=== PATIENT | female | born 1985 | race Caucasian/White ===

== ENCOUNTER 2023-03-13 14:06 | Outpatient (OUT) | payer BC, SELFPAY ==
--- NOTE | 2023-03-13 14:08 | US_ITS ---
[address] [address] Patient Name: JENI LOPEZ MRN: [id number] date: 1985 Sex: F Assigned Patient Location: Current Patient Location: US Accession/Order Number: [id number] Exam Date: 03/13/2023 14:09 Report Date: 03/13/2023 16:22 At the request of: LEONELA CONROY Procedure: US OB >= 14 weeks Fetus PROCEDURE: US OB >= 14 weeks Fetus HISTORY: DATING COMPARISON: None. TECHNIQUE: Transabdominal sonographic examination was performed for obstetrical and evaluation. FINDINGS: Number: 1 Heart Rate: 137.0 bpm H.B. /min Amniotic Fluid Volume: Subjectively normal BIOMETRY: BPD: 4.3 cm 19 weeks 1 days HC: 16.3 cm 19 weeks 0 days AC:13.6 cm 19 weeks 0 days FL: 2.9 cm 18 weeks 5 days EFW: 264.1 grams FL/AC: 21.0 FL/BPD: 65.7 HC/AC: 1.2 GESTATIONAL AGE: Age by EDC: 17 weeks 5 days DORETHA by EDC: 08/16/2023 Ultrasound Age: 19 weeks 0 days Ultrasound DORETHA: 08/07/2023 US/US OB >= 14 weeks Fetus IMPRESSION: Single live intrauterine with growth detailed above. Electronically authenticated by: LEENA ARGUELLO Date: 03/13/2023 16:22
== END 2023-03-13 14:07 | disposition home or self-care (01) ==
LOC: US 14:07
PROVIDERS: Visit Provider Obstetrics & Gynecology
DX: Z34.92 Encounter for supervision of normal pregnancy, unspecified, second trimester (principal); Z3A.14 14 weeks gestation of pregnancy; N92.6 Irregular menstruation, unspecified
CPT/HCPCS: 76815

== ENCOUNTER 2023-03-25 09:32 | Outpatient (OUT) | payer BC, SELFPAY ==
--- NOTE | 2023-03-25 09:39 | US_ITS ---
[address] [address] Patient Name: JENI LOPEZ MRN: [id number] date: 1985 Sex: F Assigned Patient Location: US Current Patient Location: US Accession/Order Number: [id number] Exam Date: 03/25/2023 10:00 Report Date: 03/25/2023 15:21 At the request of: LEONELA CONROY Procedure: US OB cervical length EXAMINATION: US OB anatomy, US OB cervical length HISTORY: Second Trimester Z34.92 COMPARISON: No relevant comparison available. TECHNIQUE: Transabdominal sonographic examination was performed for obstetrical and evaluation. FINDINGS: Number: 1 Heart Rate: 145.2 bpm H.B. /min Amniotic Fluid Volume: Subjectively normal. Placental Location: RIGHT (anterior-posterior) with lower margin 7.0 cm from os. Cervix Length: 4.4 cm, closed. ANATOMY: Normal Structures -cerebellum, choroid plexus, cisterna magna, lateral cerebral ventricles, orbits, midline falx, hard palate, four-chamber heart, RVOT, LVOT, stomach, kidneys, bladder, umbilical cord insertion into abdomen, three-vessel cord, cervical spine, thoracic spine, lumbar spine, sacral spine, right upper extremity, left upper extremity, right lower extremity, left lower extremity. SUBOPTIMALLY SEEN: None ABNORMALITIES: None BIOMETRY: BPD: 5.2 cm 21 weeks 6 days HC: 17.5 cm 20 weeks 0 days AC: 15.4 cm 20 weeks 4 days FL: 3.4 cm 20 weeks 5 days EFW:364.5 grams; 31% FL/AC: 22.1 FL/BPD: 65.0 HC/AC: 1.1 GESTATIONAL AGE: Age by EDC: 20 weeks 6 days DORETHA by EDC: 08/06/2023 Age by current US: 20 weeks 6 days DORETHA by current US: 08/06/2023 US/US OB cervical length IMPRESSION: 1. Single live intrauterine with growth detailed above. Electronically authenticated by: LEENA ARGUELLO Date: 03/25/2023 15:21
--- NOTE | 2023-03-25 09:39 | US_ITS ---
[address] [address] Patient Name: JENI LOPEZ MRN: [id number] date: 1985 Sex: F Assigned Patient Location: US Current Patient Location: US Accession/Order Number: [id number] Exam Date: 03/25/2023 10:00 Report Date: 03/25/2023 15:21 At the request of: LEONELA CONROY Procedure: US OB anatomy EXAMINATION: US OB anatomy, US OB cervical length HISTORY: Second Trimester Z34.92 COMPARISON: No relevant comparison available. TECHNIQUE: Transabdominal sonographic examination was performed for obstetrical and evaluation. FINDINGS: Number: 1 Heart Rate: 145.2 bpm H.B. /min Amniotic Fluid Volume: Subjectively normal. Placental Location: RIGHT (anterior-posterior) with lower margin 7.0 cm from os. Cervix Length: 4.4 cm, closed. ANATOMY: Normal Structures -cerebellum, choroid plexus, cisterna magna, lateral cerebral ventricles, orbits, midline falx, hard palate, four-chamber heart, RVOT, LVOT, stomach, kidneys, bladder, umbilical cord insertion into abdomen, three-vessel cord, cervical spine, thoracic spine, lumbar spine, sacral spine, right upper extremity, left upper extremity, right lower extremity, left lower extremity. SUBOPTIMALLY SEEN: None ABNORMALITIES: None BIOMETRY: BPD: 5.2 cm 21 weeks 6 days HC: 17.5 cm 20 weeks 0 days AC: 15.4 cm 20 weeks 4 days FL: 3.4 cm 20 weeks 5 days EFW:364.5 grams; 31% FL/AC: 22.1 FL/BPD: 65.0 HC/AC: 1.1 GESTATIONAL AGE: Age by EDC: 20 weeks 6 days DORETHA by EDC: 08/06/2023 Age by current US: 20 weeks 6 days DORETHA by current US: 08/06/2023 US/US OB anatomy IMPRESSION: 1. Single live intrauterine with growth detailed above. Electronically authenticated by: LEENA ARGUELLO Date: 03/25/2023 15:21
== END 2023-03-25 09:33 | disposition home or self-care (01) ==
LOC: US 09:34
PROVIDERS: PCP Family Medicine; Visit Provider Obstetrics & Gynecology
DX: Z34.92 Encounter for supervision of normal pregnancy, unspecified, second trimester (principal)
CPT/HCPCS: 76805; 76817

== ENCOUNTER 2023-04-01 11:01 | Outpatient (OUT) | payer BC, SELFPAY ==
[2023-04-01 12:06] LABS: Estimated Average Glucose 85 mg/dL; Glycohemoglobin A1C 4.6 % (4.5-6.2)
[2023-04-01 12:07] LABS: Basophils Percent Auto 0.1 % (0.2-2.0); Eosinophils Absolute Auto 0.1 10^3/uL (0.0-0.7); Eosinophils Percent Auto 1.2 % (0.9-7.0); Immature Granulocytes Abs Auto 0.02 10^3/uL (0.00-0.03); Immature Granulocytes Pct Auto 0.3 % (0.0-0.5); Lymphocytes Absolute Auto 0.9 10^3/uL (1.2-3.8); Lymphocytes Percent Auto 13.6 % (20.5-60.0); Mean Corpuscular HGB Conc 33.3 g/dL (29.9-35.2); Monocytes Absolute Auto 0.3 10^3/uL (0.3-0.8); Monocytes Percent Auto 4.3 % (1.7-12.0); Neutrophils Absolute Auto 5.5 10^3/uL (1.4-6.5); Neutrophils Percent Auto 80.5 % (43.0-75.0); Platelet Count 141 10^3/uL (150-450); Red Blood Count 4.14 10^6/uL (4.20-5.40); Red Cell Distribution Width 13.5 % (11.0-15.0); White Blood Count 6.8 10^3/uL (4.0-11.0)
[2023-04-01 12:47] LABS: Thyroid Stimulating Hormone 0.872 uIU/mL (0.358-3.740)
[2023-04-02 06:09] LABS: HBsAg Screen Negative (Negative); HCV Ab Non Reactive (Non Reactive); Rubella Antibodies, IgG 1.63 index (Immune >0.99)
[2023-04-02 11:10] LABS: HIV Ab/p24 Ag Screen Non Reactive (Non Reactive)
[2023-04-02 12:09] LABS: Rapid Plasma Reagin, Quant Non Reactive (NonRea<1:1)
[2023-04-03 16:10] LABS: AFP Value 74.9 ng/mL (.); Gest. Age on Collection Date 21.7 weeks (.); Gestat. Age Based On Ultrasound (.); Insulin Dep Diabetes No (.); Maternal Age At EDD 35.7 yr (.); OSBR Risk 1 IN 8933 (.); Results Report (.)
== END 2023-04-01 11:02 | disposition home or self-care (01) ==
LOC: LAB 11:03
PROVIDERS: PCP Family Medicine; Visit Provider Obstetrics & Gynecology
DX: Z34.92 Encounter for supervision of normal pregnancy, unspecified, second trimester (principal)
CPT/HCPCS: 36415; 82105; 83036; 84443; 85025; 86592; 86706; 86762; 86803; 86850; 86900; 86901; 87086; 87389

== ENCOUNTER 2023-05-06 20:30 | Outpatient (REF) | payer BC, SELFPAY ==
[2023-05-10 11:08] LABS: Age Gdln ACOG Testing Note (.); HPV Aptima Negative (Negative); IGP, Aptima HPV, rfx 16/18,45 Note (.)
== END 2023-05-06 20:31 | disposition home or self-care (01) ==
LOC: LAB 20:30
PROVIDERS: PCP Family Medicine; Visit Provider Obstetrics & Gynecology
DX: Z12.4 Encounter for screening for malignant neoplasm of cervix (principal)
CPT/HCPCS: 87624; G0145

== ENCOUNTER 2023-05-07 07:34 | Outpatient (OUT) | payer BC, SELFPAY ==
[2023-05-07 09:03] LABS: Basophils Percent Auto 0.4 % (0.2-2.0); Eosinophils Absolute Auto 0.1 10^3/uL (0.0-0.7); Eosinophils Percent Auto 1.4 % (0.9-7.0); Hematocrit 32.7 % (36.0-48.0); Hemoglobin 10.5 g/dL (12.0-16.0); Immature Granulocytes Abs Auto 0.04 10^3/uL (0.00-0.03); Immature Granulocytes Pct Auto 0.7 % (0.0-0.5); Lymphocytes Absolute Auto 0.9 10^3/uL (1.2-3.8); Lymphocytes Percent Auto 16.5 % (20.5-60.0); Mean Corpuscular HGB Conc 32.1 g/dL (29.9-35.2); Mean Corpuscular Hemoglobin 29.1 pg (26.7-34.0); Mean Corpuscular Volume 90.6 fL (81.0-99.0); Mean Platelet Volume 10.9 fL (9.5-13.5); Monocytes Absolute Auto 0.3 10^3/uL (0.3-0.8); Monocytes Percent Auto 5.1 % (1.7-12.0); Neutrophils Absolute Auto 4.3 10^3/uL (1.4-6.5); Neutrophils Percent Auto 75.9 % (43.0-75.0); Platelet Count 117 10^3/uL (150-450); Red Blood Count 3.61 10^6/uL (4.20-5.40); Red Cell Distribution Width 13.2 % (11.0-15.0); White Blood Count 5.7 10^3/uL (4.0-11.0)
[2023-05-07 09:47] LABS: Glucose 1 Hour 79 mg/dL
== END 2023-05-07 07:35 | disposition home or self-care (01) ==
LOC: LAB 07:35
PROVIDERS: PCP Family Medicine; Visit Provider Obstetrics & Gynecology
DX: Z13.1 Encounter for screening for diabetes mellitus (principal)
CPT/HCPCS: 36415; 82950; 85025

== ENCOUNTER 2023-06-16 11:19 | Outpatient (OUT) | payer BC, SELFPAY ==
--- NOTE | 2023-06-16 11:21 | US_ITS ---
[address] [address] Patient Name: JENI LOPEZ MRN: [id number] date: 1985 Sex: F Assigned Patient Location: US Current Patient Location: US Accession/Order Number: [id number] Exam Date: 06/16/2023 11:21 Report Date: 06/16/2023 16:39 At the request of: LEONELA CONROY Procedure: US OB growth EXAMINATION: US OB growth HISTORY: SIZE INCONSISTENT WITH DATES COMPARISON: No relevant comparison available. FINDINGS: Heart Rate: 133.0 bpm Amniotic Fluid Volume: 10.9 cm Number: 1.0 Position: Cephalic presentation, longitudinal lie Maximum Vertical Pocket: 5.4 cm cm 1.1 cm cm 2.8 cm cm 1.7 cm cm Other: Small right scrotal hydrocele BIOMETRY: BPD: 8.4 cm cm; 33 weeks 5 days; 76% HC: 29.5 cmcm; 32 weeks 4 days, 40% AC: 28.0 cm cm; 32 weeks 0 days, 34% FL: 6.3 cm cm; 32 weeks 5 days; 43.3 % % EFW: 1979.9 grams, 4 lbs. 6 oz., 36% FL/AC: 22.6 FL/BPD: 75.7 HC/AC: 1.1 GESTATIONAL AGE: Age by EDC: 32 weeks 4 days DORETHA by EDC: 08/07/2023 Age by US: 32 weeks 5 days DORETHA by US: 08/06/2023 US/US OB growth IMPRESSION: Small right scrotal hydrocele Normal interval growth Electronically authenticated by: SANJU ROSADO Date: 06/16/2023 16:39
== END 2023-06-16 11:20 | disposition home or self-care (01) ==
LOC: US 11:19
PROVIDERS: PCP Family Medicine; Visit Provider Obstetrics & Gynecology
DX: O26.843 Uterine size-date discrepancy, third trimester (principal); Z3A.32 32 weeks gestation of pregnancy
CPT/HCPCS: 76816

== ENCOUNTER 2023-07-08 19:19 | Outpatient (REF) | payer BC, SELFPAY | END 2023-07-08 19:20 | disposition home or self-care (01) | LOC: LAB 19:19 | PROVIDERS: PCP Family Medicine; Visit Provider Obstetrics & Gynecology | DX: Z34.93 Encounter for supervision of normal pregnancy, unspecified, third trimester (principal) | CPT/HCPCS: 87081; 87150 ==

== ENCOUNTER 2023-07-25 04:24 | Inpatient (IN) | payer BC, SELFPAY ==
[2023-07-25] VITALS (47 sets, daily range): BP systolic 80–128; BP diastolic 48–75; PULSE 77–122; RESP 16–18; TEMP 36.6–37.1
[2023-07-25 05:50] LABS: Bilirubin Urine NEGATIVE (NEGATIVE); Blood Urine NEGATIVE (NEGATIVE); Clarity Urine CLOUDY (CLEAR); Color Urine YELLOW (YELLOW); Glucose Urine UA NEGATIVE (NEGATIVE); Ketones Urine NEGATIVE (NEGATIVE); Leukocyte Esterase Urine LARGE (NEGATIVE); Nitrite Urine NEGATIVE (NEGATIVE); Protein Urine NEGATIVE (NEG/TRACE); Urobilinogen Urine 0.2 EU/dL (0.2-1.0); pH Urine 7.5 (5.0-9.0)
[2023-07-25 05:54] LABS: Urine Microscopic Indicated YES
[2023-07-25 05:58] LABS: Amorphous Sediment Urine FEW; Bacteria Urine MODERATE #/HPF (NONE SEEN); Cast Seen? NONE SEEN #/LPF (NONE SEEN); Crystals Seen? Seen #/HPF (None Seen); Mucus Urine NONE SEEN (NONE SEEN); Squamous Epithelial Cell Urine MODERATE #/LPF (NONE/RARE); Urine Culture Indicated YES; WBC Urine 75-100 #/HPF (NONE SEEN)
[2023-07-25 11:27] LABS: Amphetamine Screen Urine NEGATIVE (NEGATIVE); Barbiturates Screen Urine NEGATIVE (NEGATIVE); Benzodiazepines Screen Urine NEGATIVE (NEGATIVE); Buprenorphine Screen Urine NEGATIVE (NEGATIVE); Cannabinoid Screen Urine NEGATIVE (NEGATIVE); Cocaine Screen Urine NEGATIVE (NEGATIVE); Methadone Screen Urine NEGATIVE (NEGATIVE); Methamphetamines Screen Urine NEGATIVE (NEGATIVE); Opiate Screen Urine NEGATIVE (NEGATIVE); Oxycodone Screen Urine NEGATIVE (NEGATIVE); Phencyclidine Screen Urine NEGATIVE (NEGATIVE); Tricyclic Antidepressant Urine NEGATIVE (NEGATIVE)
[2023-07-25] MEDS: AMPICILLIN SODIUM 2,000 MG in 0.9 % SODIUM CHLORIDE 100 ML 200 MG IV (11:43)
[2023-07-25] MEDS: 0.9 % SODIUM CHLORIDE 1,000 ML 1000 ML IV (11:44)
[2023-07-25] MEDS: OXYTOCIN 10 UNIT in 0.9 % SODIUM CHLORIDE 500 ML 6.012 UNIT IV (11:47)
[2023-07-25 11:50] LABS: Hematocrit 31.7 % (36.0-48.0); Mean Corpuscular HGB Conc 31.5 g/dL (29.9-35.2); Mean Corpuscular Hemoglobin 26.7 pg (26.7-34.0); Mean Corpuscular Volume 84.8 fL (81.0-99.0); Mean Platelet Volume 12.5 fL (9.5-13.5); Platelet Count 115 10^3/uL (150-450); Red Blood Count 3.74 10^6/uL (4.20-5.40); Red Cell Distribution Width 13.6 % (11.0-15.0); White Blood Count 8.9 10^3/uL (4.0-11.0)
[2023-07-25] MEDS: ROPIVACAINE HCL/PF 400 MG/200 ML PREMIX 6 MG EPIDURAL (13:10)
[2023-07-25] MEDS: 0.9 % SODIUM CHLORIDE 1,000 ML 125 ML IV ×2 (13:29→20:11)
[2023-07-25] MEDS: CALCIUM CARBONATE 500 MG (200MG ELEMENTAL) TAB CHEW PO (15:38)
[2023-07-25] MEDS: AMPICILLIN SODIUM 1,000 MG in 0.9 % SODIUM CHLORIDE 50 ML 100 MG IV (15:38)
--- NOTE | 2023-07-25 17:54 | PM.OBPRCVD ---
Procedure Intrapartal events: None Induction method: none Delivery augmentation: rupture of membranes and pitocin Delivery monitor: external FHT and external uterine Route of delivery: Laceration description: periurethral - 2nd degree Delivery repair: Vicryl Estimated blood loss (mL): 300 Anesthesia type: Epidural Disposition: floor Delivery date: 07/25/23 Gender: male presentation: vertex Placental delivery description: Spontaneous cord description: 3 Vessels
[2023-07-25] MEDS: OXYTOCIN/0.9 % SODIUM CHLORIDE 20 UNITS/1,000 ML PLAST..BAG 125 UNIT IV (18:10)
--- NOTE | 2023-07-25 19:37 | PC.NURSE ---
dr grayson notified of qbl of 1235 and pt vital signs and stability, instructs RN to continue second bag of pitocin after first bag and call for additional concerns
--- NOTE | 2023-07-25 19:39 | PC.NURSE ---
182 several fist size clots expressed with moderate stream of blood accompanying, uterus firms up with massage u/1
--- NOTE | 2023-07-25 19:42 | PC.NURSE ---
0 additional stream of blood with massage and one clot noted, fist size, pt states feels a little shaky but is also hungry, color remains pink, instructed to call with any additional gushes, takes dinner, iv pitocin increased to 999 ml/hr qbl 1235 mls fundus firm ue
[2023-07-25] MEDS: IBUPROFEN 600 MG TABLET PO (21:43)
[2023-07-26] VITALS (9 sets, daily range): BP systolic 92–107; BP diastolic 51–61; PULSE 91–101; RESP 16; TEMP 36.6–37.3
[2023-07-26 05:24] LABS: Basophils Percent Auto 0.2 % (0.2-2.0); Eosinophils Percent Auto 0.4 % (0.9-7.0); Hematocrit 24.2 % (36.0-48.0); Hemoglobin 7.5 g/dL (12.0-16.0); Immature Granulocytes Abs Auto 0.07 10^3/uL (0.00-0.03); Immature Granulocytes Pct Auto 0.7 % (0.0-0.5); Lymphocytes Absolute Auto 1.1 10^3/uL (1.2-3.8); Lymphocytes Percent Auto 10.2 % (20.5-60.0); Mean Corpuscular Hemoglobin 26.7 pg (26.7-34.0); Mean Corpuscular Volume 86.1 fL (81.0-99.0); Mean Platelet Volume 12.5 fL (9.5-13.5); Monocytes Absolute Auto 0.6 10^3/uL (0.3-0.8); Monocytes Percent Auto 5.4 % (1.7-12.0); Neutrophils Absolute Auto 8.9 10^3/uL (1.4-6.5); Neutrophils Percent Auto 83.1 % (43.0-75.0); Platelet Count 105 10^3/uL (150-450); Red Blood Count 2.81 10^6/uL (4.20-5.40); Red Cell Distribution Width 13.4 % (11.0-15.0); White Blood Count 10.7 10^3/uL (4.0-11.0)
--- NOTE | 2023-07-26 07:21 | PC.NURSE ---
Report given to Rob Singh RN
[2023-07-26] MEDS: IBUPROFEN 600 MG TABLET PO ×3 (08:28→23:48)
[2023-07-26] MEDS: DOCUSATE SODIUM 100 MG CAPSULE PO ×2 (08:29→21:45)
--- NOTE | 2023-07-26 09:01 | P.OBPN_ITS ---
OB - PN: Subj Subjective Patient comments: no complaints and pain well controlled [place] status: doing well Exam Constitutional Vital Signs, click to edit/add: Last Vital Signs Temp 97.9 F 07/26/23 04:45 Pulse 91 H 07/26/23 08:15 Resp 16 07/26/23 00:49 BP 93/52 07/26/23 08:15 Documenting provider has reviewed patient's vital signs: yes Common normals: no apparent distress Respiratory Common normals: normal respiratory effort and clear to auscultation bilaterally Cardio Common normals: regular rate and regular rhythm GI Common normals: Normal to inspection, nondistended, normoactive bowel sounds present Extremity Common normals: no clubbing, cyanosis or edema and no calf tenderness Results Labs Labs: Short CBC 07/25/23 07/26/23 Range/Units 11:30 05:12 WBC 8.9 10.7 (4.0-11.0) 10^3/uL Hgb 10.0 L 7.5 L (12.0-16.0) g/dL Hct 31.7 L 24.2 L (36.0-48.0) % Plt Count 115 L 105 L (150-450) 10^3/uL OB - PN: A/P Plan - Vaginal Delivery day: 1 Plan: routine care, discharge home and follow up 6 weeks Time Spent with Patient Time: Total time spent is greater than 50% in coordination of care (as documented) at patient's floor/unit and/or counseling patient: Total time spent with greater than 50% in coordination of care (as documented) at patient's floor/unit and/or counseling patient: less than 15 minutes
--- NOTE | 2023-07-26 10:05 | PC.NURSE ---
0815 Assessed as noted, denies abnormal bleeding or dizziness, saline lock removed per pt request
[2023-07-27 00:14] VITALS: RESP 16
[2023-07-27 00:17] VITALS: TEMP 36.6
[2023-07-27] MEDS: IBUPROFEN 600 MG TABLET PO (06:07)
--- NOTE | 2023-07-27 07:44 | PC.NURSE ---
0715-Report given to Samantha Byrne RN.
[2023-07-27 09:00] VITALS: RESP 16
[2023-07-27 09:01] VITALS: BP 109/66; PULSE 86; TEMP 36.4
--- NOTE | 2023-07-27 09:20 | PM.OBPN ---
OB - PN: Subj Subjective Patient comments: no complaints and pain well controlled [place] status: doing well Exam Constitutional Vital Signs, click to edit/add: Last Vital Signs Temp 97.9 F 07/27/23 00:17 Pulse 86 07/27/23 09:01 Resp 16 07/27/23 00:14 BP 109/66 07/27/23 09:01 Documenting provider has reviewed patient's vital signs: yes Common normals: no apparent distress Respiratory Common normals: normal respiratory effort and clear to auscultation bilaterally Cardio Common normals: regular rate and regular rhythm GI Common normals: Normal to inspection, nondistended, normoactive bowel sounds present Extremity Common normals: no calf tenderness OB - PN: A/P Plan - Vaginal Delivery day: 2 Plan: routine care, discharge home and follow up 6 weeks Time Spent with Patient Time: Total time spent is greater than 50% in coordination of care (as documented) at patient's floor/unit and/or counseling patient: Total time spent with greater than 50% in coordination of care (as documented) at patient's floor/unit and/or counseling patient: less than 15 minutes
[2023-07-30 01:11] LABS: Neisseria gonorrhoeae, NAA Negative (Negative)
== END 2023-07-27 17:18 | disposition home or self-care (01) | DRG 806 ==
PROVIDERS: Internal Medicine Allergy & Immunology; Admitting Provider Obstetrics & Gynecology; PCP Family Medicine; Visit Provider Obstetrics & Gynecology
DX: O99.12 Other diseases of the blood and blood-forming organs and certain disorders involving the immune mechanism complicating childbirth (principal); O98.82 Other maternal infectious and parasitic diseases complicating childbirth; Z37.0 Single live birth; O70.1 Second degree perineal laceration during delivery; O99.214 Obesity complicating childbirth; D69.6 Thrombocytopenia, unspecified; Z3A.38 38 weeks gestation of pregnancy; B95.1 Streptococcus, group B, as the cause of diseases classified elsewhere
CPT/HCPCS: 36415; 59025; 59050; 59410; 80307; 81001; 85025; 85027; 86850; 86900; 86901; 87086; 87150; 87186; 87491; 87591; 96374; 96375; 96376

== ENCOUNTER 2023-07-29 08:08 | Outpatient (OUT) | payer BC, SELFPAY ==
--- NOTE | 2023-07-29 12:44 | PC.NURSE ---
Sheri and Wilmar arrive for follow up visit. Sheri emotional, tearful. States just been a lot by myself with the 3 other kids and a . No help at this time as she and spouse are . Has 3 older children and , but children will now be with father for next 9 days. I just need to rest and take care of myself for a few days and all will be fine . Sheri's assessment WNL denies complaints of pain. States did pass large clot early this AM. No heavy bleeding before or after clot. Had just awakened from 4 hour stretch of sleep and had minimal blood on pad. Wilmar assessment WNL. Baby feeds every 2-3 hours well, had 1 four hour stretch this AM. Has 7-8 voids and 5-6 yellow/brown stools, turning yellow . Mom reports nipples are sore but that is normal for me, first 2 weeks are bad and then just gets better Baby latches at breast, deep latch noted with immediate swallows noted. Active nursing for 23 minutes. Reviewed care of breasts, shells give with explanation, lanolin and use of tea bags. Pt states will call if does not improve and would like further assistance from LC.
[2023-07-29 12:48] VITALS: BP 136/82; PULSE 120; RESP 18; TEMP 36.8; O2SAT 96
== END 2023-07-29 09:55 | disposition home or self-care (01) ==
LOC: FBCO 08:09
PROVIDERS: PCP Family Medicine; Visit Provider Obstetrics & Gynecology
DX: Z39.2 Encounter for routine postpartum follow-up (principal)

== ENCOUNTER 2023-09-11 12:36 | Outpatient (OUT) | payer BC, SELFPAY ==
--- OUTSIDE RECORDS SUMMARY | 2023-09-11 12:39 | XMS_ITS | CCD ---
Author Name Unknown Address [address] [place] [address] Organization [facility] Care Team Providers Care Digital Analytics Manager Name Role Phone Denise, Carmen L. Unavailable Unavailable Denise, Carmen L. Unavailable Unavailable Pascual, Zainab R Unavailable Unavailable Pascual, Zainab R Unavailable Unavailable NONE, XXXX Unavailable Unavailable Denise, Carmen L. Unavailable Unavailable Denise, Carmen L. Unavailable Unavailable NONE, XXXX Unavailable Unavailable Pascual, Zainab R Unavailable Unavailable Denise, Carmen L. Unavailable Unavailable Denise, Carmen L. Unavailable Unavailable Denise, Carmen L. Unavailable Unavailable Denise, Carmen L. Unavailable Unavailable NONE, XXXX Unavailable Unavailable Vimal, Shwetha Unavailable Unavailable Vimal, Shwetha Unavailable Unavailable BACAK, TOMASA J Unavailable Unavailable DENISE, CARMEN Unavailable Unavailable DENISE, CARMEN Unavailable Unavailable BACAK, TOMASA J Unavailable Unavailable DENISE, CARMEN Unavailable Unavailable DENISE, CARMEN Unavailable Unavailable Minnie Medrano Unavailable LEONELA CONROY Attending Unavailable LEONELA CONROY Attending Unavailable ELADIO VERONICA Attending Unavailable Medications Current Medications Medication Drug Class(es) Dates Sig (Normalized) Sig (Original) Phentermine (2 sources) Sympathomimetic Amine Anorectic Adipex-P Active sulfamethoxazole 800 mg / trimethoprim 160 mg oral tablet (2 sources) Dihydrofolate Reductase Inhibitor Antibacterial, Sulfonamide Antimicrobial Start: 01-04-2022 take 1 tablet by mouth every twelve hours Bactrim DS 800-160 MG 1 tablet Orally Twice a day for 10 day(s) December, Active Problems Problem Classification Problem Date Documented Date Episodic/Chronic Genitourinary symptoms and ill-defined conditions (2 sources) Dysuria; Translations: [Other symptoms and signs involving the genitourinary system] Onset: 01-04-2022 Resolved: 01-04-2022 Episodic Results Test Name Value Interpretation Reference Range Facility Urinalysis - DIPSTICKon -0 Appearance (U) cloudy [email or web address] Other Bilirubin Ql (U) small [employer] Other Color (U) yellow [employer] Other Glucose Ql (U) Negative [email or web address] Other Hemoglobin Ql (U) large [facility] [employer] Other Ketones Ql (U) moderate [email or web address] Other Leukocyte esterase Test strip Ql (U) moderate [employer] Other Nitrite Ql (U) Positive [email or web address] Other pH (U) 7.0 [pH] [employer] Other Protein Ql (U) + [email or web address] Other Specific gravity (U) [Rel density] 1.010 [employer] Other Urobilinogen (U) [Mass/Vol] normal [facility] Other Urinalysis - DIPSTICK [employer] Other Urine Cultureon 01-04-2022 Urine Culture 50,000 [employer] Other Urine Culture <16 Susceptible [email or web address] Other Urine Culture <8 Susceptible [email or web address] Other Urine Culture <4 Susceptible [email or web address] Other Urine Culture <2 Susceptible [email or web address] Other Urine Culture <1 Susceptible [email or web address] Other Urine Culture <0.5 Susceptible [email or web address] Other Urine Culture <32 Susceptible [email or web address] Other Urine Culture <2/38 Susceptible [email or web address] Other Bacteria identified Cx Nom (U) Reason for Exam Dysuria Urine Reason for Exam: Dysuria : Urine ORGANISM: Escherichia coli (O:ESCCOL) [place] Count 50,000 Aerobic MILTON Charge (NUC86) SUSCEPTIBILITY ORGANISM: O:ESCCOL ANTIBIOTIC INTERPRETATION [place] Amikacin S <16 Ampicillin S <8 Ampicillin/Sulbactam S <8/4 Aztreonam S <4 Cefazolin S <2 Cefepime S <2 Ceftazidime S <1 Ceftazidime/Avibactam S <8 Ceftriaxone S <1 Ciprofloxacin S <1 Ertapenem S <0.5 Gentamicin S <4 Levofloxacin S <2 Meropenem S <1 Nitrofurantoin S <32 Piperacillin/Tazobactam S <16 Tetracycline S <4 Tigecycline S <2 Tobramycin S <4 Trimethoprim/Sulfamethoxazo le S <2/38 S = SUSCEPTIBLE I = INTERMEDIATE R = RESISTANT BLANK = DATA NOT AVAILABLE, OR DRUG NOT ADVISABLE OR TESTED R* = RESISTANCE DUE TO EXTENDED SPECTRUM BETA-LACTAMASES ESBL = EXTENDED SPECTRUM BETA-LACTAMASE TFG = THYMIDINE-DEPENDENT STRAIN GREYSON = BETA-LACTAMASE POSITIVE IB = INDUCIBLE BETA-LACTAMASE. APPEARS IN PLACE OF 'S' WITH SPECIES KNOWN TO POSSESS INDUCIBLE BETA-LACTAMASES. POTENTIALLY THEY MAY BECOME RESISTANT TO ALL B-LACTAM DRUGS. PERFORMED BY: [place] [address] PATHOLOGIST SEXUAL HEALTH PHYSICIAN PJ ASHBY M.D. Normal [facility] Comment on above: Performed By: #### C UU #### [address] Coding Queryon 08-21-2017 Coding Query Normal [facility] Coding Queryon 08-20-2017 Coding Query -From: Rukhsana Alexander To: Vimal ROMERO, Shwetha Florentino; Cc: Elida Swanson; Sent: 08/15/2017 15:55:00 EST !Subject: Coding Query Hi Dr. Celis, Documentation in the medical record indicates this patient is diagnosed as having:Laceration: perineal second degree.Please document a procedure note if repair was performed. Thanks for your help.In responding to this request, please exercise your independent professional judgment. The fact that a question is asked does not imply that any particular answer is desired or expected. Thank you!Severiano Ext [phone] Fr om: Shwetha Celis MD To: Rukhsana Alexander; Cc: Elida Swanson; Sent: 08/20/2017 12:52:16 ESTSubject: RE: Coding Query Addendum added to delivery note. F rom: Rukhsana Alexander To: Elida Swanson; Sent: 08/20/2017 13:15:13 ESTSubject: FW: Coding Query Normal [facility] Coding Summary.on 08-20-2017 Coding Summary. CODING DATE: 017 FINAL [facility] DSC STATUS: Home (Routine DC) PAYOR: Commercial Insurance Grouper: 775 MS-DRG Vaginal delivery w/o complicating diagnoses Low Trim 0 High Trim 999 560 APR-DRG Vaginal delivery Severity of Illness Minor Risk of Mortality Minor ADMIT DX: O80 Encounter for full-term uncomplicated delivery REASON FOR VISIT DX: FINAL DX: PRINCIPAL: O69.81X0 Y Labor and delivery complicated by cord around neck, without compression, not applicable or unspecified SECONDARY: Z37.0 1 Single live Z3A.40 1 40 weeks gestation of O70.1 N Second degree perineal laceration during delivery O90.81 N Anemia of the puerperium D64.9 N Anemia, unspecified PROCEDURES DOCTOR NAME DATE Delivery of Products of Shwetha Celis MD 08/13/2017 Conception, External Approach [id number] Repair Perineum Muscle, Open Shwetha Celis MD 08/13/2017 Approach 37733SD Drainage of Amniotic Fluid, Shwetha Cleis MD 08/13/2017 Therapeutic from Products of Conception, Via Natural or Artificial Opening [id number] Introduction of AnalgesicsJayleen JR, DO, Nicholas 08/13/2017 Hypnotics, Sedatives into Spinal Canal, Percutaneous Approach NOTE: The code number assigned matches the documented diagnosis and / or procedure in the patient's chart. However, the narrative phrase printed from the coding software may appear abbreviated, or result in slightly different terminology. Revised Coded By: Rukhsana Alexander Revised Date Saved: 08/20/2017 01:20 pm Normal [facility] Delivery Summaryon 7 Delivery Summary Patient: VERONICA LOPEZ Age: 31 years Sex: Female : 1985 Associated Diagnoses: None Author: Shwetha Celis MD Basic Information Gestational Age: * Note: EGA calculated as of 08/13/2017EDD: 08/11/2017 EGA*: 40 weeks 2 days Type: Authoritative Method Date: 05/12/2017Method: Unknown (05/12/2017)Confirmation: ConfirmedDescription: --Comments: --Entered by: José Antonio Corporate Trust OfficerAlma on 05/12/2017 Other DORETHA Calculations for this : No additional DORETHA calculations have been recorded for this . Procedure Vaginal delivery procedure Performed by: Shwetha Celis MD. Indication for delivery: labor progression spontaneous, TIUP. Anesthesia method: epidural. Position: birthing bed. Rupture of membranes: moderate amount of fluid, appearance of fluid clear, amniotomy. Delivery of infant: time of 08/13/17 08:47:00, uneventful, umbilical cord (clamped and cut, delayed cord clamping x30 seconds), KATHRYN presentation, nuchal cord x1. Right shoulder anterior.. Status of infant Viable Gender: male. Apgars: 9 at one minute, 9 at five minutes. Weight: pending. Umbilical cord: three vessels. Not suctioned prior to delivery of shoulders. Placenta: delivery spontaneous, intact. Uterus: hemostasis. Procedure tolerated: well. Complications Maternal: no complications. Newell/ Baby A: no complications. Post Delivery Laceration: perineal second degree. Estimated blood loss: 200 ml. Impression and Plan Vaginal Delivery: condition: Stable. Maternal condition: Stable.2nd degree perineal laceration repaired with 3-0 Vicryl in the usual fashion.Shwetha Celis MD [facility] Comment on above: Result Comment: Elec tronically Signed By: Vimal ROMERO, Shwetha Florentino\.br\Date and Time Signed: 08/20/17 12:51 EST Progress Note-Physicianon Progress Note-Physician Patient: SHERI LOPEZ Age: 31 years Sex: Female : 1985 Associated Diagnoses: None Author: Anuj Clemens JR, DO Postoperative Information Post Operative Note: L/D EPIDURAL POST DELIVERY NOTE.. Anesthetic utilized: Regional: EPCA for L/D. Health Status Allergies: Allergic Reactions (Selected)No Known Allergies Current medications: (Selected) Documented MedicationsDocumentedZantac : Refills(s) 0predniSONE: Refills(s) 0 Problem list: All ProblemsGroup B streptococcus / SNOMED CT 918444014 / ConfirmedResolved: Urinary tract infection / SNOMED CT 325850501Qhpjdydr: / SNOMED CT 444439494Chtowyov: / SNOMED CT 601398071Gozmrzao: / SNOMED CT 403526859Hryjbydb: / SNOMED CT 958173630 Physical Examination VSS, Epidural catheter removed intact, Lumbar area site nontender, no erythema Intake and Output Pt. denies significant n/v, and is tolerating p.o. No qualifying data available Pain assessment: Pain Assessment 08/14/2017 16:00 EST Numeric Pain Scale 5 = Moderate pain Numeric Pain Score 5 08/14/2017 13:00 EST Numeric Pain Scale 0 = No pain Numeric Pain Score 0 08/14/2017 12:00 EST Numeric Pain Scale 5 = Moderate pain Numeric Pain Score 5 08/14/2017 08:00 EST Numeric Pain Scale 0 = No pain Numeric Pain Score 0 08/14/2017 07:40 EST Pain Symptoms Self Report Yes, able to self report Primary Pain Location OB Uterine Primary Pain Laterality Bilateral Primary Pain Quality Cramping Patient Preferred Pain Tool Numeric rating Numeric Pain Scale 5 = Moderate pain Numeric Pain Score 5 Primary Pain Interventions Medications, Repositioning, Rest . Respiratory: Adequate air exchange with adventist of preoperative function.. Cardiovascular: Cardiovascular function is stable and has returned to preoperative levels.. Neurologic: Pt. has returned to preoperative baseline.. Assessment Anesthetic outcome No anesthetic complications noted. Plan Transfer/ Discharge: Patient can be discharged from anesthesia care. Condition good. Normal [facility] Comment on above: Result Comment: Elec tronically Signed By: Anuj Clemens JR, DO\.br\Date and Time Signed: 08/15/17 17:39 EST Progress Note-Physician Patient: SHERI LOPEZ Age: 31 years Sex: Female : 1985 Associated Diagnoses: None Author: Anuj Clemens JR, DO Postoperative Information Post Operative Note: L/D EPIDURAL POST DELIVERY NOTE.. Anesthetic utilized: Regional: EPCA for L/D. Health Status Allergies: Allergic Reactions (Selected)No Known Allergies Current medications: (Selected) Inpatient MedicationsOrderedEpidural Bag Ropivacaine Fentanyl 200 mL: 200 mL, Epidural, 10 mL/hr, for 48 hour(s), Stop date 08/15/17 7:06:00 EST, Routine, Start date 08/13/17 7:07:00 EST, 20 hour(s), Total volume (mL): 200Lactated Ringers IV Sagrario 1000 mL 1,000 mL: 1,000 mL, IV, 125 mL/hr, Routine, Start date 08/13/17 7:07:00 EST, 8 hour(s), Total volume (mL): 1,000Lactated Ringers IV Sagrario 1000 mL 1,000 mL: 1,000 mL, IV, Bolus, Other (see comment), Routine, Start date 08/13/17 7:07:00 EST, Total volume (mL): 1,000Mastisol: 1 sharmin, Soln-Top, Topical, Once PRN Other (see comment), Routine, Start date 08/13/17 7:07:00 ESTZofran 4 mg/2 mL Injection: 4 mg = 2 mL, Injection, IV Push, q4hr PRN Itching, Routine, Start date 08/13/17 7:07:00 ESTdiphenhydrAMINE 50 mg/mL Inj: 25 mg = 0.5 mL, Injection, IV Push, q4hr PRN Itching, Routine, Start date 08/13/17 7:07:00 ESTePHEDrine 50 mg/mL Inj: 10 mg = 0.2 mL, Injection, IV Push, Once PRN Other (see comment), Routine, Start date 08/13/17 7:07:00 ESTfentaNYL 50 mcg/mL Inj 2 mL: 100 microgram = 2 mL, Injection, Epidural, Once PRN Other (see comment), Routine, Start date 08/13/17 7:07:00 ESTnalbuphine 10 mg/mL Inj 1 mL: 10 mg = 1 mL, Injection, IV Push, q2hr PRN Pain - Moderate, Routine, Start date 08/13/17 7:05:00 ESTnalbuphine 10 mg/mL Inj 1 mL: 20 mg = 2 mL, Injection, IntraMuscular, Once PRN Pain - Severe, Routine, Start date 08/13/17 7:05:00 ESTnaloxone 0.4 mg/mL Inj: 0.2 mg = 0.5 mL, Injection, IV Push, Once PRN Other (see comment), Routine, Start date 08/13/17 7:07:00 ESTropivacaine 0.2% injectable solution 10 mL: 18 mg, 9 mL, Injection, Epidural, Once PRN Other (see comment), Routine, Start date 08/13/17 7:07:00 ESTDocumented MedicationsDocumentedZantac : Refills(s) 0predniSONE: Refills(s) 0 Problem list: All ProblemsPregnancy / SNOMED CT 539577876 / ConfirmedGroup B streptococcus / SNOMED CT 693790167 / ConfirmedResolved: Urinary tract infection / SNOMED CT 573300805Zppsghts: / SNOMED CT 299746882Doizayom: / SNOMED CT 220970603Liufljfk: / SNOMED CT 855595486 Physical Examination VSS, Epidural catheter removed intact, Lumbar area site nontender, no erythema Intake and Output Pt. denies significant n/v, and is tolerating p.o. Vitals Signs (last 24 hrs) Last Charted Minimum MaximumTemp 36.4 (AUG 13:) 36.4 (AUG 13:) 36.4 (AUG 13:)Heart Rate H 123 (AUG 13:) H 123 (AUG 13) H 123 (AUG 13)Resp Rate 18 (AUG 13:) 18 (AUG 13:) 18 (AUG 13:)SBP 120 (AUG 13:) 120 (AUG 13:) 120 (AUG 13:)DBP 66 (AUG 13:) 66 (AUG 13:) 66 (AUG 13:)MAP 84 (AUG 13:) 84 (AUG 13:) 84 (AUG 13:) Respiratory: Adequate air exchange with adventist of preoperative function.. Cardiovascular: Cardiovascular function is stable and has returned to preoperative levels.. Neurologic: Pt. has returned to preoperative baseline.. Assessment Anesthetic outcome No anesthetic complications noted. Plan Transfer/ Discharge: Patient can be discharged from anesthesia care. Condition good. Normal [facility] CBC w/Indiceson 08-14-2017 Erythrocyte distribution width Auto Ratio (RBC) 14.3 % High 10.9-14.2 [facility] Comment on above: Performed By: #### 2 [id number] ####[facility] [address] [place] [address] Erythrocytes (RBC) 3.4 E12/L Low 4.3-5.9 [facility] Comment on above: Performed By: #### 2 [id number] ####[facility] [address] [place] [id number] Hematocrit (HCT) 27.3 % Low 34.0-46.0 [facility] Comment on above: Performed By: #### 2 [id number] ####[facility] [address] [place] [address] Hemoglobin mass conc (Bld) 8.9 g/dL Low 12.0-16.0 [facility] Comment on above: Performed By: #### 2 [id number] ####[facility] [address] [place] [address] MCH 26.2 pg Low 27.0-34.0 [facility] Comment on above: Performed By: #### 2 [id number] ####[facility] [address] [place] [address] MCHC mass conc (RBC) 32.7 g/dL Normal 31.4-39.3 [facility] Comment on above: Performed By: #### 2 [id number] ####[facility] [address] [place] [address] MCV 80.2 fL Normal 80.0-100.0 [facility] Comment on above: Performed By: #### 2 [id number] ####[facility] [address] [place] [address] Platelet mean volume (PMV) 9.8 fL Normal 6.4-10.8 [facility] Comment on above: Performed By: #### 2 [id number] ####[facility] [address] [place] [address] Platelets 106.0 E9/L Low 150.0-500.0 [facility] Comment on above: Performed By: #### 2 [id number] ####[facility] [address] [place] [address] WBC (Leukocytes) 10.1 E9/L Normal 4.0-11.0 [facility] Comment on above: Performed By: #### 2 [id number] ####[facility] [address] [place] [address] Consultation Noteon 08-14-20 Consultation Note Visited Mom. She fee ls that is going well. She denies any concerns. She does state that her milk is coming in. I have offered my support should she need anything. khloe,SOFTWARE DEVELOPER MANAGER,[employer] Normal [facility] Comment on above: Result Comment: Elec tronically Signed By: Salvatore CounselorJojo\.br\Date and Time Signed: 08/14/17 09:18 EST Discharge Instructions Given Worseningon 08-14-2017 Discharge Instructions Given Worsening The following Patient Education Materials have been given to the patient: EducationMaterial Normal [facility] Discharge Summaryon 08-14-20 Discharge Summary Patient: VERONICA LOPEZ Age: 31 years Sex: Female : 1985 Associated Diagnoses: None Author: Vimal ROMERO, Shwetha Florentino Chief Complaint 31 yo PPD#1 s/p , doing well. Ambulating, voiding, nohemy reg diet, pain well controlled with po pain meds. Notes lot of cramping. Lochia normal. going well. Desires OCPs for PP contraception.Admit date: 08/13/17Discharge date: 08/14/17Condition: stableDischarge diagnoses: 1. TIUP 2. Spontaneous labor 3. PP anemiaProcedures: 1. 2. EpiduralConsultations: noneDisposition: homeDischarge diet: regularDischarge meds: ibuprofen prnHospital course: Patient admitted in active labor. Progressed to complete and went on to deliver without complication. Please see delivery note for further details about delivery. On PPD#1 pt was ambulating, voiding, nohemy reg diet, pain well controlled, and breast/bottle feeding. Ready for discharge. Pt would like OCPs for PP contraception.Discharge restrictions: No lifting >20# for 4 wks, nothing in vagina x4 wks, no strenuous activity x4 wks. Call if Temp >100.4, uncontrolled pain or N/V, bleeding soaking more than 1 pad/hr. Start micronor 3 wks after delivery Review of Systems Otherwise negative other than per above. Physical Examination Vital Signs 08/14/2017 07:40 EST Temperature Oral 36.7 DegC Heart Rate Monitored 78 bpm Respiratory Rate 16 br/min Systolic Blood Pressure 102 mmHg Diastolic Blood Pressure 55 mmHg LOW Mean Arterial Pressure, Cuff 71 mmHg Hourly Rounding Yes SpO2 98 % General: Alert and oriented, No acute distress. Eye: Pupils are equal, round and reactive to light, Extraocular movements are intact. HENT: Normocephalic, Normal hearing. Respiratory: Lungs are clear to auscultation, Respirations are non-labored, Breath sounds are equal, Symmetrical chest wall expansion. Cardiovascular: Normal rate, Regular rhythm, Normal peripheral perfusion. Gastrointestinal: Soft, Non-distended, Normal bowel sounds, Appropriately tender to palpation. Musculoskeletal Normal range of motion. Normal strength. Integumentary: Warm, Dry, [place]. Neurologic: Alert, Oriented. Psychiatric: Cooperative, Appropriate mood & affect, Normal judgment. Review / Management Results review: Lab results 08/14/2017 06:00 EST Hgb 8.9 gm/dL LOW 08/13/2017 07:23 EST Hgb 11.0 gm/dL LOW . Impression and Plan 31 yo PPD#1 s/p , doing well. PP anemia.1. Discharge home, f/u for 6 wk PP visit2. Cont PNV for PP anemia3. Start OCPs 3 wks after delivery.Shwetha Celis MD [facility] Comment on above: Result Comment: Elec tronically Signed By: Shwetha Celis MD\.br\Date and Time Signed: 08/14/17 17:47 EST Inpatient Clinical Summaryon 08-14-2017 Inpatient Clinical Summary [place] [address] Clinical Summary Person Information Name: SHERI LOPEZ/[facility] Age: 31 Years : 1985 12:00 AM Sex: Female PCP: NONE, XXXX Marital Status: Race:White Ethnicity:Non- or Language:Divehi Visit Id: Visit Reason:INDUCTION/CONTRACTIO NS Speciality: Acuity: 1 PP Enc Type: Inpatient Med Service: Obstetrics Arrival:08/13/2017 6:51 AM Discharge: 08/14/2017 6:15 PM Dispo Type: Home (Routine DC) Address:[address] [place] [id number] Provider Notes: Patient: SHERI LOPEZ Age: 31 years Sex: Female : 1985 Associated Diagnoses: None Author: Shwetha Celis MD Chief Complaint 31 yo PPD#1 s/p , doing well. Ambulating, voiding, nohemy reg diet, pain well controlled with po pain meds. Notes lot of cramping. Lochia normal. going well. Desires OCPs for PP contraception.Admit date: 08/13/17Discharge date: 08/14/17Condition: stableDischarge diagnoses: 1. TIUP 2. Spontaneous labor 3. PP anemiaProcedures: 1. 2. EpiduralConsultations: noneDisposition: homeDischarge diet: regularDischarge meds: ibuprofen prnHospital course: Patient admitted in active labor. Progressed to complete and went on to deliver without complication. Please see delivery note for further details about delivery. On PPD#1 pt was ambulating, voiding, nohemy reg diet, pain well controlled, and breast/bottle feeding. Ready for discharge. Pt would like OCPs for PP contraception.Discharge restrictions: No lifting >20# for 4 wks, nothing in vagina x4 wks, no strenuous activity x4 wks. Call if Temp >100.4, uncontrolled pain or N/V, bleeding soaking more than 1 pad/hr. Start micronor 3 wks after delivery Review of Systems Otherwise negative other than per above. Physical Examination Vital Signs 08/14/2017 07:40 EST Temperature Oral 36.7 DegC Heart Rate Monitored 78 bpm Respiratory Rate 16 br/min Systolic Blood Pressure 102 mmHg Diastolic Blood Pressure 55 mmHg LOW Mean Arterial Pressure, Cuff 71 mmHg Hourly Rounding Yes SpO2 98 % General: Alert and oriented, No acute distress. Eye: Pupils are equal, round and reactive to light, Extraocular movements are intact. HENT: Normocephalic, Normal hearing. Respiratory: Lungs are clear to auscultation, Respirations are non-labored, Breath sounds are equal, Symmetrical chest wall expansion. Cardiovascular: Normal rate, Regular rhythm, Normal peripheral perfusion. Gastrointestinal: Soft, Non-distended, Normal bowel sounds, Appropriately tender to palpation. Musculoskeletal Normal range of motion. Normal strength. Integumentary: Warm, Dry, [place]. Neurologic: Alert, Oriented. Psychiatric: Cooperative, Appropriate mood & affect, Normal judgment. Review / Management Results review: Lab results 08/14/2017 06:00 EST Hgb 8.9 gm/dL LOW 08/13/2017 07:23 EST Hgb 11.0 gm/dL LOW . Impression and Plan 31 yo PPD#1 s/p , doing well. PP anemia.1. Discharge home, f/u for 6 wk PP visit2. Cont PNV for PP anemia3. Start OCPs 3 wks after delivery.Shwetha Celis MD Diagnosis:Normal vaginal delivery Problems Active Group B streptococcus Smoking Status:Never Smoker Functional Status:Sensory Deficits: History of Falls: Mobility Assistance Prior to Admission: ADLs: IndependentCurrent Level of Assistance for Self-Care/Mobility: Cognitive Status: Allergies No Known Allergies Laboratory or Other Results This Visit (last charted value for your 08/13/2017 visit) Hematology 08/14/2017 6:00 AM Hct: 27.3 % -- Normal range between ( 34.0 and 46.0 ) Hgb: 8.9 gm/dL -- Normal range between ( 12.0 and 16.0 ) RBC: 3.4 E12/L -- Normal range between ( 4.3 and 5.9 ) RDW: 14.3 % -- Normal range between ( 10.9 and 14.2 ) MCH: 26.2 pg -- Normal range between ( 27.0 and 34.0 ) MCHC: 32.7 gm/dL -- Normal range between ( 31.4 and 39.3 ) MCV: 80.2 fL -- Normal range between ( 80.0 and 100.0 ) MPV: 9.8 fL -- Normal range between ( 6.4 and 10.8 ) Platelet: 106.0 E9/L -- Normal range between ( 150.0 and 500.0 ) WBC: 10.1 E9/L -- Normal range between ( 4.0 and 11.0 ) Chemistry 08/13/2017 10:00 AM U Benzodia Scr: Negative U Cocaine Scr: Negative U Opiate Scr: Negative U PCP Scr: Negative U Cannab Scr: Negative U Amph Scr: Negative U Roberta Scr: Negative U Suboxone Scr: Negative Blood Bank 08/13/2017 7:23 AM ABO/Rh: O POS ABSC Gel Interp: Negative Measurements:Height: 162.5 cmWeight: 75 kgBlood Pressure: 102 mmHg / 55 mmHgBMI: Procedures No Procedures Documented Immunizations No Immunizations Documented This Visit Final Med List:predniSONE ranitidine (Zantac) Care Team Members:Attending Physician: Shwetha Celis MD JConsulting Physician: Referring Physician: Follow up:With: Address: When: Shwetha Celis [address] [place] [address] Business (1) Within 6 weeks Comments: Call for any problems. Call for fever > 100.5 F Call for severe abdominal pain Call physician for heavy vaginal bleeding Nothing in the vagina for 6 weeks Call for 6 week appt. Patient Education Information: Normal [facility] Inpatient Patient Summaryon 08-14-2017 Inpatient Patient Summary [address] [address] Patient Discharge Instructions PERSON INFORMATION Name: SHERI LOPEZ Date of : 1985 12:00 AM Current Date: 08/14/17 18:23:11 PHYSICIANS Admitting Physician: [facility] Physician: DARLENE, XXXXPCP Phone Number: Comment: Discharge Diagnosis: Normal vaginal deliveryCondition at Discharge: Stable SHERI LOPEZ has been given the following list of follow-up instructions, prescriptions, and patient education materials: PATIENT FOLLOW-UP INFORMATIONDiet: Activity: Wound Care Instructions: Remove Your Dressing IN: DaysCall Your Doctor For: IF UNABLE TO CONTACT YOUR PHYSICIAN AND YOU FEEL IT IS AN EMERGENCY, GO TO THE NEAREST EMERGENCY ROOM OR CALL 911 Home Treatment: Devices/Equipment: Special Services: Additional Instructions: Physician to provide the following pending test results: None Follow up:With: Address: When: Shwetha Celis [address] [place] [address] Business (1) Within 6 weeks Comments: Call for any problems. Call for fever > 100.5 F Call for severe abdominal pain Call physician for heavy vaginal bleeding Nothing in the vagina for 6 weeks Call for 6 week appt. In the event that this physician does not participate in your insurance network, please consult with your insurance company to find a nearby participating provider. Comment: JESSICA Gabriel BRIANNE N, have received the attached patient education materials/instructions and have verbalized understanding:Do You Have Everything You Need When You Go Home? Yes___ No___Will You Have Help at Home After Discharge? Yes___ No___Do You Understand the Symptoms/Problems to Look For in Regards to Yourself and/or Your Infant? Yes___ No___Patient Signature Date Clinican/Milady se Signature Date MEDICATION LISTMedications to Continue with No ChangesOther MedicationspredniSONE Last Dose: Ne xt Dose: ra nitidine (Zantac) Last Dose: Ne xt Dose: Pharmacy Information: Kamille Hu- MOTHER EDUCATIONGENERAL INSTRUCTIONSRoom Orientation: Bathing/Hygiene: Burping: Bulb Syringe Use: Crib Contents-Diapers, Wipes, Formula for Home: Importance of Follow-up Visits- Mom in 6 weeks, See DC instructions for Baby: Vaginal Discharge/Psuodomenses-girl : Circumcision-boy: SELF CAREPerineal Care-Written/Verbal Info Given, Use Water Bottle: Verbalizes understandingLocia Changes/Cramps/Vaginal Bleeding, Report if Heavy: Verbalizes understandingSitz Baths: Incision/Episiotomy Care: Verbalizes understandingBreast Care: Verbalizes understandingBowel Habits/Laxative Over the Counter: Verbalizes understandingBladder Habits/Empty Bladder Frequently: Verbalizes understandingPostpartum Depression/Baby Blues- Call physician if very sad: Pain Management- Script Given at Discharge: Verbalizes understandingPlan of Care: Verbalizes understandingBOTTLE FEEDINGBottle Cleaning and Preparation: Bottle Feeding Frequency/Amount: BREAST FEEDINGNutrition: Positioning Baby: Nipple Care/Engorgement: Latch On: PATIENT EDUCATION INFORMATIONInstructions:Med ication Leaflets: Thank you for choosing [facility] Normal [facility] ABO/Rhon 08-13-2017 ABO/Rh Positive Invalid Interpretation Code [facility] Comment on above: Performed By: #### 2 [id number], [id number], [id number], [id number] ####[facility] [address] [place] [address] ABO/Rh History Checkon 08-13 ABO/Rh History Check Verified Hx Blood Type Normal [facility] Comment on above: Performed By: #### 2 [id number], [id number], [id number], [id number] ####[facility] [address] [place] [address] ABSCon 08-13-2017 ABSC Gel Interp Negative Normal [facility] Comment on above: Performed By: #### 2 [id number], [id number], [id number] ####[facility] [address] [place] [address] Blood Bank ID#on 08-13-2017 BBID# [id number] Invalid Interpretation Code [facility] Comment on above: Performed By: #### 2 [id number], [id number], [id number] ####[facility] [address] [place] [address] CBC w/Indiceson 08-13-2017 Erythrocyte distribution width Auto Ratio (RBC) 14.3 % High 10.9-14.2 [facility] Comment on above: Performed By: #### 2 [id number] ####[facility] [address] [place] [address] Erythrocytes (RBC) 4.2 E12/L Low 4.3-5.9 [facility] Comment on above: Performed By: #### 2 [id number] ####[facility] [address] [place] [address] Hematocrit (HCT) 33.1 % Low 34.0-46.0 [facility] Comment on above: Performed By: #### 2 [id number] ####[facility] [address] [place] [address] Hemoglobin mass conc (Bld) 11.0 g/dL Low 12.0-16.0 [facility] Comment on above: Performed By: #### 2 [id number] ####[facility] [address] [place] [address] MCH 26.2 pg Low 27.0-34.0 [facility] Comment on above: Performed By: #### 2 [id number] ####[address] [address] MCHC mass conc (RBC) 33.1 g/dL Normal 31.4-39.3 [facility] Comment on above: Performed By: #### 2 [id number] ####[address] [address] MCV 79.3 fL Low 80.0-100.0 [facility] Comment on above: Performed By: #### 2 [id number] ####[address] [address] Platelet mean volume (PMV) 9.5 fL Normal 6.4-10.8 [facility] Comment on above: Performed By: #### 2 [id number] ####[address] [address] Platelets 109.0 E9/L Low 150.0-500.0 [facility] Comment on above: Performed By: #### 2 [id number] ####[address] [address] WBC (Leukocytes) 9.9 E9/L Normal 4.0-11.0 [facility] Comment on above: Performed By: #### 2 [id number] ####[address] [address] Consultation Noteon 08-13-20 Consultation Note Revisited Mom. Baby is skin to skin and is on the left breast. Mom is holding baby well and baby has a deep latch and is noted to be sucking and swallowing. Mom denies any pain. I have talked with her in regards to the baby being tongu tied. She will follow the advice of the egg breaking machine operator.MONIQUE ledbetter,C BS [facility] Comment on above: Result Comment: William tronically Signed By: Salvatore CounselorJojo\.br\Date and Time Signed: 08/13/17 10:52 EST Consultation Note Visted Mom. She is s /p Vaginal Dleivery. Baby is resting skin to skin on Moms chest. I have reviewed information with her and have encouraged her to try and breastfeed her baby while he is nice and alert. I have offered my help and will check back with this Mom.MONIQUE Ledbetter,HAOPre delivery nurse-baby is tongue tied. Mom has been informed.MONIQUE ledbetter,HAO [facility] Comment on above: Result Comment: William tronically Signed By: Salvatore CounselorJojo\.br\Date and Time Signed: 08/13/17 09:39 EST History and Physicalon 08-13 History and Physical Patient: SHERI LOPEZ Age: 31 years Sex: Female : 1985 Associated Diagnoses: None Author: Vimal ROMERO, Shwetha Florentino Basic Information Reason for admission: Labor. Informed consent obtained for anesthesia and procedure. Gestational Age: * Note: EGA calculated as of 08/13/2017EDD: 08/11/2017 EGA*: 40 weeks 2 days Type: Authoritative Method Date: 05/12/2017Method: Unknown (05/12/2017)Confirmation: ConfirmedDescription: --Comments: --Entered by: José Antonio Corporate Trust OfficerAlma on 05/12/2017 Other DORETHA Calculations for this : No additional DORETHA calculations have been recorded for this . Chief Complaint 08/13/2017 07:25 EST contractions History of Present Illness The patient presents with contractions. Uterine contractions beginning 4 hour(s) ago. Patient is Para Information: : 4 Para Term: 2 Para : 0 Para Abortions: 1 Para Livin. Review of Systems Negative other than contractions. +FM, bloody show. Denies LOF. Health Status Allergies: Allergic Reactions (Selected)No Known Allergies Problem list: All ProblemsGroup B streptococcus / SNOMED CT 745018555 / ConfirmedPregnancy / SNOMED CT 380640751 / Confirmed Histories History History (1,0,1,2) # 1 Baby 1 Outcome Date: 2009 Outcome: Outcome or Result: Elective Gender: -- Gest Age: -- Wt: -- Hospital: -- Familia Labor: -- Child's Name: -- Baby's Father: -- # 2 Baby 1 Outcome Date: 06/01/2012 Outcome: Live Outcome or Result: Vaginal, Vacuum Assist Gender: Female Gest Age: 39 weeks 2 days Wt: 3402 g Hospital: -- Familia Labor: 13 hr 30 min Child's Name: -- Baby's Father: -- Anesthesia Type: EpiduralPregnancy # 3 Baby 1 Outcome Date: 09/12/2015 Outcome: Live Outcome or Result: Vaginal Gender: Female Gest Age: 38 weeks 3 days Wt: 2683 g Hospital: [facility] [place] Familia Labor: 10 hr 17 min Child's Name: -- Baby's Father: -- Anesthesia Type: Epidural Complications: None Complications: nuchal cord times one, tight Family History: Entire family history is negative. Procedure history: tissue resource development director & scar revision on back of head in 2007 at 21 Years. 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 Exercise Does not exercise (06/01/2012) Home/Environment Lives with Significant other. Alcohol abuse in household: No. Substance abuse in household: No. Smoker in household: No. Injuries/Abuse/Neglect in household: No. Safe place to go: Yes. Family/Friends available for support: Yes. Concern for family members at home: No. Major illness in household: No. Financial concerns: No. TV/Computer concerns: No. Nutrition/Health Regular Sexual Sexually active: Yes. Substance Abuse Denies Substance Abuse (06/01/2012) Tobacco Denies Tobacco Use (06/01/2012)Psychosocial History No active psychosocial history has been recorded. Physical Examination Vital Signs 08/13/2017 07:25 EST Temperature Oral 36.4 DegC Peripheral Pulse Rate 123 bpm HI Respiratory Rate 18 br/min Systolic Blood Pressure 120 mmHg Diastolic Blood Pressure 66 mmHg Mean Arterial Pressure, Cuff 84 mmHg General: Alert and oriented, No acute distress. Eye: Pupils are equal, round and reactive to light, Extraocular movements are intact. HENT: Normocephalic, Normal hearing. Respiratory: Respirations are non-labored, Symmetrical chest wall expansion. Cardiovascular: Normal rate, Normal peripheral perfusion. Gastrointestinal: Soft, Non-tender, gravid; firm contractions. Obstetric Exam Contractions noted: regular pattern, strong in quality. Uterus: consistent with gestational age. Newell/ Baby A evaluation: movement present, heart tones (135 bpm, baseline variability moderate), assessment of heart tracing reassuring heart rate, presentation/ presenting part vertex. Cervix: dilated 7 cm, station/ evidence of descent 0 - head engaged, membrane status ruptured (artificially, 08/13/17 08:17:00), amniotic fluid (moderate amount, no meconium). Integumentary: Warm, Dry, [place]. Neurologic: Alert, Oriented. Psychiatric: Cooperative, Appropriate mood & affect. Impression and Plan 31 yo @ 40 2/7 wga, spontaneous labor, O+, GBS neg1. Admitted, consented2. Just received epidural3. AROM performed - clear fluid4. Expectant managementShwetha Celis MD [facility] Comment on above: Result Comment: Elec tronically Signed By: Vimal ROMERO, Shwetha Florentino\.br\Date and Time Signed: 08/13/17 08:24 EST Progress Note-Physicianon Progress Note-Physician Patient: SHERI LOPEZ Age: 31 years Sex: Female : 1985 Associated Diagnoses: None Author: Anuj Clemens JR, DO Preoperative Information Anesthesia history: Patient history: Denies any history of anesthesia complications.. Family history: Denies any history of anesthesia complications.. Review of Systems Respiratory: Denies sob, or change in respiratory status.. Cardiovascular: Denies chest pain, or palpitations. No recent change in functional status.. Hematology/Lymphatics: Denies any history of bleeding disorders or excessive bleeding/ bruising.. Neurologic: Denies any history of significant motor/sensory deficits, TIA's or CVA's.. Health Status Allergies: Allergic Reactions (Selected)No Known Allergies Current medications: (Selected) Inpatient MedicationsOrderedEpidural Bag Ropivacaine Fentanyl 200 mL: 200 mL, Epidural, 10 mL/hr, for 48 hour(s), Stop date 08/15/17 7:06:00 EST, Routine, Start date 08/13/17 7:07:00 EST, 20 hour(s), Total volume (mL): 200Lactated Ringers IV Sagrario 1000 mL 1,000 mL: 1,000 mL, IV, 125 mL/hr, Routine, Start date 08/13/17 7:07:00 EST, 8 hour(s), Total volume (mL): 1,000Lactated Ringers IV Sagrario 1000 mL 1,000 mL: 1,000 mL, IV, Bolus, Other (see comment), Routine, Start date 08/13/17 7:07:00 EST, Total volume (mL): 1,000Mastisol: 1 sharmin, Soln-Top, Topical, Once PRN Other (see comment), Routine, Start date 08/13/17 7:07:00 ESTZofran 4 mg/2 mL Injection: 4 mg = 2 mL, Injection, IV Push, q4hr PRN Itching, Routine, Start date 08/13/17 7:07:00 ESTdiphenhydrAMINE 50 mg/mL Inj: 25 mg = 0.5 mL, Injection, IV Push, q4hr PRN Itching, Routine, Start date 08/13/17 7:07:00 ESTePHEDrine 50 mg/mL Inj: 10 mg = 0.2 mL, Injection, IV Push, Once PRN Other (see comment), Routine, Start date 08/13/17 7:07:00 ESTfentaNYL 50 mcg/mL Inj 2 mL: 100 microgram = 2 mL, Injection, Epidural, Once PRN Other (see comment), Routine, Start date 08/13/17 7:07:00 ESTnalbuphine 10 mg/mL Inj 1 mL: 10 mg = 1 mL, Injection, IV Push, q2hr PRN Pain - Moderate, Routine, Start date 08/13/17 7:05:00 ESTnalbuphine 10 mg/mL Inj 1 mL: 20 mg = 2 mL, Injection, IntraMuscular, Once PRN Pain - Severe, Routine, Start date 08/13/17 7:05:00 ESTnaloxone 0.4 mg/mL Inj: 0.2 mg = 0.5 mL, Injection, IV Push, Once PRN Other (see comment), Routine, Start date 08/13/17 7:07:00 ESTropivacaine 0.2% injectable solution 10 mL: 18 mg, 9 mL, Injection, Epidural, Once PRN Other (see comment), Routine, Start date 08/13/17 7:07:00 ESTDocumented MedicationsDocumentedZantac : Refills(s) 0predniSONE: Refills(s) 0 Problem list: All ProblemsPregnancy / SNOMED CT 164114711 / ConfirmedGroup B streptococcus / SNOMED CT 088193798 / ConfirmedResolved: Urinary tract infection / SNOMED CT 884954319Igufusib: / SNOMED CT 191336685Exfuylie: / SNOMED CT 110214889Vdffudoe: / SNOMED CT 821777524 Histories Past Medical History: ResolvedPregnancy (751416944): Onset on 12/30/2014 at 29 years. Resolved on 09/12/2015 at 29 years.Urinary tract infection (054830209): Onset on 09/22/2011 at 25 years. Resolved. (753589210): Onset on 09/01/2011 at 25 years. Resolved on 06/01/2012 at 26 years. (381841499): Resolved in 2009 at 23 years. Family History: Entire family history is negative. Procedure history: tissue resource development director & scar revision on back of head in 2007 at 21 Years. 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, [employer] ocppmppjqsAklqajfs98/01/201 2 Risk Assessment: Does not exerciseHome/Nirhlztmdzd78/ 01/2012 Lives with: Significant other Alcohol abuse in household: No Substance abuse in household: No Smoker in household: No Injuries/Abuse/Neglect in household: No Safe place to go: Yes Family/Friends available to help: Yes Concern for family members at home: No Major illness in household: No Financial concerns: No Concerns over TV/Computer/Game use: NoNutrition/Gmawcg30 2 Type of diet: UuqwpkuCiwkdw63/01/2012 Sexually active: YesSubstance Abuse06/01/2012 Risk Assessment: Denies Substance ZzaslTjcwfeh50/01/2012 Risk Assessment: Denies Tobacco Use. Physical Examination Vitals Signs (last 24 hrs) Last Charted Minimum MaximumTemp 36.4 (AUG 13:25) 36.4 (AUG 13:) 36.4 (AUG 13:)Heart Rate H 123 (AUG 13) H 123 (AUG 13) H 123 (AUG 13)Resp Rate 18 (AUG 13:) 18 (AUG 13:) 18 (AUG 13)SBP 120 (AUG 13) 120 (AUG 13) 120 (AUG 13:)DBP 66 (AUG 13:) 66 (AUG 13:) 66 (AUG 13:)MAP 84 (AUG 13:) 84 (AUG 13) 84 (AUG 13) Measurements from flowsheet : Measurements 08/13/2017 07:25 EST Height/Length Measured 162.5 cm Weight Measured 75 kg General: Alert and oriented, No acute distress. Airway: Mouth: Adequate opening, Tongue ( Within normal limits ), Teeth ( Within normal limits ). Throat: Within normal limits. Neck: Supple, Non-tender, Trachea ( Midline ). HENT: Normocephalic. Respiratory: Adequate air exchange.. Cardiovascular: Adequate pulses and perfusion.. Gastrointestinal: Benign, nontender.. Integumentary: Warm, [place]. Neurologic: No focal deficits, Cranial Nerves II-XII are grossly intact. Review / Management Results review Condition: Stable. Plan [place] [employer] Anesthesiologists (ASA) physical status classification: Class II. Anesthetic Preoperative Plan Anesthesia: Regional Labor and delivery epidural utilizing EPCA. Anesthetic plan, risks, benefits, and alternatives discussed with the patient and/or family. Patient verbalized understanding. Discussed with pt the importance of abstaining from tobacco products, and offered counseling if pt desires. Informed consent was given. [facility] Comment on above: Result Comment: Elec tronically Signed By: Anuj Clemens JR, DO.br\Date and Time Signed: 08/13/17 08:22 EST Progress Note-Physician Patient: SHERI LOPEZ Age: 31 years Sex: Female : 1985 Associated Diagnoses: None Author: Anuj Clemens JR, DO Procedure Epidural injection procedure Confirmed: patient. Performed by: self. Informed consent: signed by patient. Indication: CONTROL OF LABOR PAIN. Location: lumbar. Preparation and technique: informed consent obtained, positioned sitting upright, sterile preparation of site (in usual fashion, with 10 % povidone iodine, draped to expose affected area, UTILIZING AN ARROW EPIDURAL KIT), local anesthesia lidocaine with epinephrine, approach (midline, L 3-4), needle (# 17 gauge, placed via loss of resistance technique, WITH NS AND AIR), aspiration NEGATIVE FOR BLOOD OR CSF, injectant UPON LOCATION OF THE EPIDURAL SPACE, A 19G ARROW EPIDURAL CATHETER WAS EASILY INSERTED WITHOUT PAIN OR PARESTHESIAS TO 3CM INTO THE EPIDURAL SPACE. AFTER A TEST DOSE, A TOTAL BOLUS OF 9 ML OF NAROPIN 0.2% AND 100MCG OF FENTANYL WAS EASILY INJECTED. PATIENT DENIED ANY SIGNS OR SYMPTOMS OF INTRAVASCULAR OR INTRATHECAL INJECTION, THEN AN EPIDURAL PLIER WORKER WAS INITIATED AND MAINTAINED AT 10 ML/HR. INFUSION TO BE DISCONTINUED AT THE AUTO RADIO MECHANIC'S REQUEST.. Procedure tolerated: well. Complications: NO APPARENT COMPLICATIONS AT THE END OF THE PROCEDURE. 8S/ 3S Impression and Plan Normal [facility] Comment on above: Result Comment: Elec tronically Signed By: Anuj Clemens JR, DO\.br\Date and Time Signed: 08/13/17 08:21 EST U Drug Screenon 08-13-2017 AMPHETAMINES:PRTH R:PT:URINE:ORD:SC REEN>1000 NG/ML Negative Normal Negative [facility] Comment on above: Result Comment: Nega tive Cutoff: <1000 ng/mL Performed By: #### 2 [id number] ####[facility] [address] [place] [address] OPIATES:PRTHR:PT: URINE:ORD:SCREEN Negative Normal Negative [facility] Comment on above: Result Comment: Nega tive Cutoff: <300 ng/mL Performed By: #### 2 [id number] ####[facility] [address] [place] [address] PHENCYCLIDINE:PRT HR:PT:URINE:ORD:S CREEN>25 NG/ML Negative Normal Negative [facility] Comment on above: Result Comment: Nega tive Cutoff: <25 ng/mLThese drug screen results are to be used for medical (i.e., treatment) purposes only. Unconfirmed drug screening results must not be used for non-medical purposes (e.g., employment testing, legal testing). Performed By: #### 2 [id number] ####[address] [address] TETRAHYDROCANNABI NOL:PRTHR:PT:URIN E:ORD:SCREEN>50 NG/ML Negative Normal Negative [facility] Comment on above: Result Comment: Nega tive Cutoff: <50 ng/mL Performed By: #### 2 [id number] ####[address] [address] Urine, barbiturates presence Negative Normal Negative [facility] Comment on above: Result Comment: Nega tive Cutoff: <200 ng/mL Performed By: #### 2 256871 ####[address] [address] Urine, benzodiazepines presence Negative Normal Negative [facility] Comment on above: Result Comment: Nega tive Cutoff: <200 ng/mL Performed By: #### 2 496909 ####[address] [address] Urine, cocaine presence Negative Normal Negative [facility] Comment on above: Result Comment: Nega tive Cutoff: <300 ng/mL Performed By: #### 2 [id number] ####[address] [address] Coding Summary.on 07-17-2017 Coding Summary. CODING DATE: 017 FINAL [facility] STATUS: Home (Routine DC) PAYOR: Commercial Insurance ADMIT DX: REASON FOR VISIT DX: Z36.9 Encounter for screening, unspecified FINAL DX: PRINCIPAL: Z36.9 Encounter for screening, unspecified SECONDARY: Z3A.36 36 weeks gestation of PROCEDURES DOCTOR NAME DATE NOTE: The code number assigned matches the documented diagnosis and / or procedure in the patient's chart. However, the narrative phrase printed from the coding software may appear abbreviated, or result in slightly different terminology. Coded By: Radha Land Date Saved: 07/17/2017 06:17 pm Normal [facility] US Follow Upon Follow Up Exam Date/Time:07/15/2017 12:53 ESTReason for Exam:growthReportIMPRESSION : THIRD TRIMESTER SINGLE INTRAUTERINE GESTATION.CLINICAL HISTORY: growth. COMPARISON: 03/31/2017.COMMENT: Transabdominal images were obtained.The uterus is enlarged, and there is a single intrauterine fetus in cephalicposition. The average ultrasound gestational age is 37 weeks 2 days, +/- 3 weeks. Thefetal heart rate is measured at 139 bpm. A previously noted echogenic intracardiacfocus is not evident on the current study. Evaluation of structures is limitedon a third trimester study. The amniotic fluid index is high normal. The placenta isanterior and lateral on the right, without evidence of placenta previa. The cervix isobscured.Please refer to the measurements and data that follow. FINAL REPORT Dictated: 07/16/2017 11:44 am Santino Garcia M.D. Signed (Electronic Signature): 07/16/2017 11:44 am Signed by: Santino Garcia M.D. Transcribed by: AYLSE Technologist: BLMTechnical CommentsEDD 08/11/17EDD Obtained DORETHA by ELIANA [id number] History 4Para 2SAB 1Transabdominal Ultrasound PerformedFHR (bpm) 139Placenta Location anterior right lateralPlacenta Grade 2Fetal Positioning VertexAmniotic Fluid Volume SAURABH (cm) 21.44High NormalFetal Measurements BPD (cm) 9.24HC (cm) 33.63AC (cm) 33.88FL (cm) 6.93EFW (g) 3176EFW Size = Dates Normal [facility] Coding Summary.on 06-05-2017 Coding Summary. CODING DATE: 017 FINAL [facility] STATUS: Home (Routine DC) PAYOR: Commercial Insurance ADMIT DX: REASON FOR VISIT DX: D69.6 Thrombocytopenia, unspecified FINAL DX: PRINCIPAL: D69.6 Thrombocytopenia, unspecified SECONDARY: PROCEDURES DOCTOR NAME DATE NOTE: The code number assigned matches the documented diagnosis and / or procedure in the patient's chart. However, the narrative phrase printed from the coding software may appear abbreviated, or result in slightly different terminology. Coded By: Radha Land Date Saved: 06/05/2017 06:03 pm Normal [facility] [facility] w/Indiceson 06-04-2017 Erythrocyte distribution width Auto Ratio (RBC) 12.7 % Normal 10.9-14.2 [facility] Comment on above: Performed By: #### 2 [id number] ####[facility] [address] [place] [address] Erythrocytes (RBC) 3.6 E12/L Low 4.3-5.9 [facility] Comment on above: Performed By: #### 2 [id number] ####[facility] [address] [place] [address] Hematocrit (HCT) 30.6 % Low 34.0-46.0 [facility] Comment on above: Performed By: #### 2 [id number] ####[facility] [address] [place] [address] Hemoglobin mass conc (Bld) 10.6 g/dL Low 12.0-16.0 [facility] Comment on above: Performed By: #### 2 [id number] ####[facility] [address] [place] [address] MCH 29.5 pg Normal 27.0-34.0 [facility] Comment on above: Performed By: #### 2 [id number] ####[facility] [address] [place] [address] MCHC mass conc (RBC) 34.4 g/dL Normal 31.4-39.3 [facility] Comment on above: Performed By: #### 2 [id number] ####[facility] [address] [place] [address] MCV 85.7 fL Normal 80.0-100.0 [facility] Comment on above: Performed By: #### 2 [id number] ####[facility] [address] [place] [address] Platelet mean volume (PMV) 9.5 fL Normal 6.4-10.8 [facility] Comment on above: Performed By: #### 2 [id number] ####[facility] [address] [place] [address] Platelets 106.0 E9/L Low 150.0-500.0 [facility] Comment on above: Performed By: #### 2 [id number] ####[facility] [address] [place] [address] WBC (Leukocytes) 8.0 E9/L Normal 4.0-11.0 [facility] Comment on above: Performed By: #### 2 [id number] ####[id number] [place] [address] Coding Summary.on 05-26-2017 Coding Summary. CODING DATE: 017 [facility] STATUS: Home (Routine DC) PAYOR: Commercial Insurance ADMIT DX: REASON FOR VISIT DX: Z36 Encounter for screening of mother FINAL DX: PRINCIPAL: Z36 Encounter for screening of mother SECONDARY: PROCEDURES DOCTOR NAME DATE NOTE: The code number assigned matches the documented diagnosis and / or procedure in the patient's chart. However, the narrative phrase printed from the coding software may appear abbreviated, or result in slightly different terminology. Coded By: Radha Land Date Saved: 05/26/2017 03:52 pm Normal [facility] Gest Scr Glu 1 Hron 05-23-20 17 Glucose mass conc 120 mg/dL Normal 55-140 [facility] Comment on above: Result Comment: Posi tive Screen =1 HR > 140mg/dL Performed By: #### 3 [id number] ####[id number] [place] [address] Progress Noteon 04-24-2017 [employer] Authentication Interface Message Text DOS: 04/24/2017[facility] CONSULTReferring/Requesting Provider: DYLLAN MoralesCP: GIUSEPPE Morales COMPLAINT: Echogenic focusHISTORY OF PRESENT ILLNESS:Sheri is a 31 y.o. female at 24w3d referred for consultation regardingan echogenic intracardiac focus on her 23 week ultrasound. She denies anyobstetric complaints today and reports normal movement. Sheri previouslydeclined first/second trimester aneuploidy screening.OB HISTORY:OB HistoryGravida Para Term AB Living4 2 2 0 1 2SAB TAB Ectopic Multiple Live Births0 1 0 2# Outcome Date GA Lbr Familia/2nd Weight Sex Delivery Anes PTL Lv4 Current3 Term 09/12/15 38w3d 2.693 kg F Vag-Spont N LIV2 Term 06/01/12 39w2d 3.402 kg F Vag-Vacuum EPI N LIV1 TAB 09/2009PAST MEDICAL HISTORY:History reviewed. No pertinent past medical history.PAST SURGICAL HISTORY:History reviewed. No pertinent surgical history.PERTINENT FAMILY HISTORY:Family HistoryProblem Relation Age of Onset Heart Disease Maternal Grandfather Heart Disease Paternal GrandfatherMEDS:Current Outpatient PrescriptionsMedication Sig Yblfpyfj-Gkv-Dh-FA ( VITAMINS PO) Take by mouth dailyALLERGY:No Known AllergiesREVIEW OF SYSTEMS:As mentioned above and in Subjective, all other Review of Systems reviewed andnegative.PHYSICAL EXAM:VITAL SIGNS: BP 110/66 Ht 162.6 cm Wt 70.8 kg (156 lb) BMI 26.78 kg/d9JJPCQYS:Estimated weight and amniotic fluid volume are appropriate for gestationalage. No gross anatomic defects were detected on today's scan. An echogenicintracardiac focus was visualized.LABS:No results found for any previous visit.IMPRESSION:Sheri is a 31 y.o. female at 24w3d withPatient Active Problem ListDiagnosis cardiac echogenic focusFetal echogenic intracardiac focus (EIF): We discussed the significance of anEIF, specifically that its presence has been associated with trisomy 21. Thereis no known structural or functional significance. As an isolated finding, EIFincreases the risk of trisomy 21 by 1.5 fold.RECOMMENDATIONS:1. Sheri declined genetic counseling, however she is considering cell-free DNAtesting.2. growth ultrasounds and testing as clinically indicated.3. Follow up with MFM as needed.The total patient time of the visit was 15 minutes, of which was greater than50% of the time was spent counseling and coordinating care.DO Radha Armenta [facility] Vital Signs Date Time Vital Sign Value Performing Clinician Facility 01-04-2022 11:30-0400 Body height 162.56 cm Minnie Medrano Other [facility] Other 01-04-2022 11:30-0400 Body mass index (BMI) [Ratio] 27.12 kg/m2 Minnie Medrano Other [facility] Other 01-04-2022 11:30-0400 Body temperature 97.9 [degF] Minnie Medrano Other [facility] Other 01-04-2022 11:30-0400 Body weight 71.67 kg Minnie Medrano Other [facility] Other 01-04-2022 11:30-0400 Diastolic blood pressure 71 mm[Hg] Minnie Medrano Other [facility] Other 01-04-2022 11:30-0400 Respiratory rate 16 /min Minnie Medrano Other [facility] Other 01-04-2022 11:30-0400 SaO2% (BldA) [Mass fraction] 98 % Minnie Medrano Other [facility] Other 01-04-2022 11:30-0400 Systolic blood pressure 110 mm[Hg] Minnie Medrano Other [facility] Other Encounters Encounter Date Encounter Type Care Provider Facility Start: 09-08-2023 End: 09-08-2023 ambulatory LEONELA CONROY Not Available Start: 07-22-2023 End: 07-22-2023 ambulatory ELADIO VERONICA Not Available Start: 07-16-2023 End: 07-16-2023 ambulatory LEONELA CONROY Not Available Start: 01-08-2022 End: 01-08-2022 ambulatory Minnie Medrano Other [facility] Other Start: 01-08-2022 Telephone encounter Minnie Medrano [facility] Start: 01-04-2022 End: 01-04-2022 ambulatory Minnie Medrano Other [facility] Other Start: 01-04-2022 Office outpatient vi sit 15 minutes Minnie Medrano [facility] Start: 08-13-2017 End: 08-14-2017 Evaluation and management of inpatient XXXX NONE Facility:[facility] [place] Start: 07-16-2017 End: 07-17-2017 Ambulatory Carmen Rivera Facility:[facility] [place] [facility] Start: 07-15-2017 End: 07-16-2017 Ambulatory Zainab Pascual Facility:[facility] [place] [facility] Start: 06-04-2017 End: 06-05-2017 Ambulatory Carmen Rivera Facility:[facility] [place] Start: 05-23-2017 End: 05-24-2017 Ambulatory Zainab Pascual Facility:[facility] [place] Start: 04-24-2017 End: 04-24-2017 Ambulatory TOMASA GRACE [facility] Start: 03-31-2017 End: 04-01-2017 Ambulatory Carmen Rivera Facility:[facility] [place] Procedures Date Procedure Procedure Detail Performing Clinician Start: 01-04-2022 Piperacillin/tazobactam Minnie Medrano Other Payers Date Payer Category Payer [facility] [place] [id number] [id number] 2017 Private Health Insurance [id number] 1987 Unknown [id number] 1987 Unknown [id number] 1987 Unknown [id number] Private Health Insurance [id number] Social History Date Type Detail Facility Unknown if ever smoked [facility] Other Sex Assigned At Sex Assigned At Bir th [facility] Other Evaluation note 01-04-2022 Note Date & Type Note Facility 01-04-2022 Evaluation note Encounter Date Diagnosis Assessment Notes December, Dysuria (ICD-10 - R30.0) December, Suspected UTI (ICD-10 - R39.89) *Start prescriptions today as prescribed. *We sent a urine culture to confirm diagnosis of UTI, will call you with results and initiate any further treatment at that point if indicated. *Increase water intake *Practice good genital hygiene *Do not wait to urinate *Seek immediate evaluation via ER if symptoms of fevers, flank pain, worsening abdominal pain with/without nausea or vomiting. *Follow up in 3-4 days if symptoms persists or worsen despite treatment. December, Other Due to infection control protocols for COVID-19 virus, direct physical contact with patient was limited to only the absolute essential needed assessments. [facility] Other Evaluation note Note Date & Type Note Facility Evaluation note No Information [facility] Other Summary Purpose Family History No Family History Records FoundNo Family History Records FoundNo Family History Records FoundNo Family History Records Found Advance Directives No Advanced Directives Records FoundNo Advanced Directives Records FoundNo Advanced Directives Records FoundNo Advanced Directives Records Found Additional Source Comments INFORMATION SOURCE (unrecogn ized section and content) DATE CREATED AUTHOR 02/24/2018 [facility] DATE CREATED AUTHOR AUTHOR'S ORGANIZ ATION 02/25/2018 [facility] DATE CREATED AUTHOR AUTHOR'S ORGANIZ ATION 01/06/2022 [facility] DATE CREATED AUTHOR AUTHOR'S ORGANIZ ATION 09/09/2023 [facility] EPIC REASON FOR VISIT (unrecogniz ed section and content) POSS UTINo Information FOR RECORDS PERTAINING TO PATIENTS WHO ARE OR HAVE BEEN ENROLLED IN A CHEMICAL DEPENDENCY/SUBSTANCEABUSE PROGRAM, SOME INFORMATION MAY BE OMITTED. This clinical summary was aggregated from multiple sources. Caution should be exercised in using it in the provision of clinical care. This summary normalizes information from multiple sources, and as a consequence, information in this document may materially change the coding, format and clinical context of patient data. In addition, data may be omitted in some cases. CLINICAL DECISIONS SHOULD BE BASED ON THE PRIMARY CLINICAL RECORDS. [facility]. provides no warranty or guarantee of the accuracy or completeness of information in this document.
[2023-09-11 13:10] LABS: Basophils Percent Auto 0.8 % (0.2-2.0); Eosinophils Absolute Auto 0.2 10^3/uL (0.0-0.7); Eosinophils Percent Auto 3.8 % (0.9-7.0); Hematocrit 28.7 % (36.0-48.0); Hemoglobin 8.4 g/dL (12.0-16.0); Lymphocytes Absolute Auto 1.1 10^3/uL (1.2-3.8); Lymphocytes Percent Auto 27.5 % (20.5-60.0); Mean Corpuscular HGB Conc 29.3 g/dL (29.9-35.2); Mean Corpuscular Volume 78.6 fL (81.0-99.0); Mean Platelet Volume 11.1 fL (9.5-13.5); Monocytes Absolute Auto 0.2 10^3/uL (0.3-0.8); Neutrophils Absolute Auto 2.5 10^3/uL (1.4-6.5); Neutrophils Percent Auto 61.9 % (43.0-75.0); Platelet Count 181 10^3/uL (150-450); Red Blood Count 3.65 10^6/uL (4.20-5.40); Red Cell Distribution Width 15.8 % (11.0-15.0)
== END 2023-09-11 12:37 | disposition home or self-care (01) ==
PROVIDERS: PCP Family Medicine; Visit Provider Obstetrics & Gynecology
DX: Z01.812 Encounter for preprocedural laboratory examination (principal)
CPT/HCPCS: 85025

== ENCOUNTER 2023-09-19 06:46 | Day surgery (SDC) | payer BC, SELFPAY ==
[2023-09-11 13:05] VITALS: BP 108/63; PULSE 84; RESP 14; TEMP 36.3; O2SAT 99; BMI 27.6
[2023-09-19] VITALS (11 sets, daily range): BP systolic 92–135; BP diastolic 58–81; PULSE 81–96; RESP 10–20; TEMP 36.1–36.2; O2SAT 96–100; BMI 28.2
--- OUTSIDE RECORDS SUMMARY | 2023-09-19 06:49 | XMS_ITS | CCD ---
Author Name Unknown Address [address] [place] [address] Organization [facility] Care Team Providers Care Molder Shoulder Pad Name Role Phone Denise, Carmen L. Unavailable [...] Urinalysis - DIPSTICKon -0 Appearance (U) cloudy Funding Profiles Other Bilirubin Ql (U) small [employer] Other Color (U) yellow [facility] Other Glucose Ql (U) Negative Funding Profiles Other Hemoglobin Ql (U) large [facility] oaActiveCloud Other Ketones Ql (U) moderate [employer] Pro[employer] Other Leukocyte esterase Test strip Ql (U) moderate [facility] Other Nitrite Ql (U) Positive [employer] Other pH (U) 7.0 [pH] [facility] Other Protein Ql (U) + [employer] Other Specific gravity (U) [Rel density] 1.010 [facility] Other Urobilinogen (U) [Mass/Vol] normal [facility] Other Urinalysis - DIPSTICK [facility] Other Urine Cultureon 01-04-2022 Urine Culture 50,000 [facility] Other Urine Culture <16 Susceptible [employer] Other Urine Culture <8 Susceptible [employer] Profiles Other Urine Culture <4 Susceptible Funding Profiles Other Urine Culture <2 Susceptible [employer] Profiles Other Urine Culture <1 Susceptible [employer] Profiles Other Urine Culture <0.5 Susceptible [employer] Profiles Other Urine Culture <32 Susceptible Funding Profiles Other Urine Culture <2/38 Susceptible Funding Profiles Other Bacteria identified Cx Nom (U) Reason for Exam Dysuria Urine Reason for Exam: Dysuria : Urine ORGANISM: Escherichia coli (O:ESCCOL) [place] Count 50,000 Aerobic MILTON Charge (NUC86) SUSCEPTIBILITY [...] RESISTANT TO ALL B-LACTAM DRUGS. PERFORMED BY: [place] [address] PATHOLOGIST WATER VALVE MECHANIC PJ ASHBY M.D. Normal [facility] [place] Comment on above: Performed By: #### C UU #### [address] Coding Queryon 08-21-2017 Coding Query Normal [facility] Coding Queryon 08-20-2017 Coding Query -From: [...] 08/20/2017 13:15:13 ESTSubject: FW: Coding Query Normal [facility] Coding Summary.on 08-20-2017 Coding Summary. CODING DATE: 017 FINAL [facility] DSC STATUS: Home (Routine DC) PAYOR: [...] Shwetha Celis MD 08/13/2017 Conception, External Approach [id number] Repair Perineum Muscle, Open Shwetha Celis MD 08/13/2017 Approach [id number] Drainage of Amniotic Fluid, Shwetha Celis MD 08/13/2017 Therapeutic from Products of Conception, Via Natural or Artificial Opening [id number] Introduction of AnalgesicsJayleen JR, DO, Nicholas 08/13/2017 Hypnotics, Sedatives into Spinal Canal, Percutaneous Approach NOTE: The code number assigned matches the documented diagnosis and / or procedure in the patient's chart. However, the narrative phrase printed from the coding software may appear abbreviated, or result in slightly different terminology. Revised Coded By: Rukhsana Alexander Revised Date Saved: 08/20/2017 01:20 pm Normal [facility] Delivery Summaryon 7 Delivery Summary Patient: VERONICA LOPEZ Age: 31 years Sex: Female : 1985 Associated Diagnoses: None Author: Shwetha Celis MD Basic Information Gestational Age: * Note: EGA calculated as of 08/13/2017EDD: 08/11/2017 EGA*: 40 weeks 2 days Type: Authoritative Method Date: 05/12/2017Method: Unknown (05/12/2017)Confirmation: ConfirmedDescription: --Comments: --Entered by: José Antonio Blasting Entry SpecialistAlma on 05/12/2017 Other DORETHA Calculations for this : No additional DORETHA calculations have been recorded for this . Procedure Vaginal delivery procedure Performed by: Shwetha Celis MD. Indication for delivery: labor progression spontaneous, TIUP. Anesthesia method: epidural. Position: birthing bed. Rupture of membranes: moderate amount of fluid, appearance of fluid clear, amniotomy. Delivery of : time of 08/13/17 08:47:00, uneventful, umbilical cord (clamped and cut, delayed cord clamping x30 seconds), KATHRYN presentation, nuchal cord x1. Right shoulder anterior.. Status of Viable Gender: male. Apgars: 9 at one [...] Vicryl in the usual fashion.Shwetha Celis MD [facility] Comment on above: Result Comment: [...] All ProblemsGroup B streptococcus / SNOMED CT 003657326 / ConfirmedResolved: Urinary tract infection / SNOMED CT 760798491Ymgnktdr: / SNOMED CT 056321219Jeceoxts: / SNOMED CT 207299798Xusgyscq: / SNOMED CT 201074405Uckojxhg: / SNOMED CT 355498438 Physical Examination VSS, Epidural catheter removed intact, [...] Rest . Respiratory: Adequate air exchange with advent of preoperative function.. Cardiovascular: Cardiovascular function is stable and has returned to preoperative levels.. Neurologic: Pt. has returned to preoperative baseline.. Assessment Anesthetic outcome No anesthetic complications noted. Plan Transfer/ Discharge: Patient can be discharged from anesthesia care. Condition good. Normal [facility] Comment on above: Result Comment: Elec [...] Problem list: All ProblemsPregnancy / SNOMED CT 543095537 / ConfirmedGroup B streptococcus / SNOMED CT 207945014 / ConfirmedResolved: Urinary tract infection / SNOMED CT 595404013Rhykswec: / SNOMED CT 044924446Assvpwsv: / SNOMED CT 919694800Tbwywwal: / SNOMED CT 121711308 Physical Examination VSS, Epidural catheter removed intact, [...] (AUG 13:) Respiratory: Adequate air exchange with advent of preoperative function.. Cardiovascular: Cardiovascular function is stable and has returned to preoperative levels.. Neurologic: Pt. has returned to preoperative baseline.. Assessment Anesthetic outcome No anesthetic complications noted. Plan Transfer/ Discharge: Patient can be discharged from anesthesia care. Condition good. Normal [facility] CBC w/Indiceson 08-14-2017 Erythrocyte distribution width Auto Ratio (RBC) 14.3 % High 10.9-14.2 [facility] Comment on above: Performed By: #### 2 [id number] ####[facility] [address] [place] [address] Erythrocytes (RBC) 3.4 E12/L Low 4.3-5.9 [facility] Comment on above: Performed By: #### 2 255995 ####[facility] [address] [place] 0455757 Hematocrit (HCT) 27.3 % Low 34.0-46.0 [facility] Comment on above: Performed By: #### 2 674109 ####[facility] [address] [place] [address] Hemoglobin mass conc (Bld) 8.9 g/dL Low 12.0-16.0 [facility] Comment on above: Performed By: #### 2 526145 ####[facility] [address] [place] [address] MCH 26.2 pg Low 27.0-34.0 [facility] Comment on above: Performed By: #### 2 107777 ####[facility] [address] [place] [address] MCHC mass conc (RBC) 32.7 g/dL Normal 31.4-39.3 [facility] Comment on above: Performed By: #### 2 777839 ####[facility] [address] [place] [address] MCV 80.2 fL Normal 80.0-100.0 [facility] Comment on above: Performed By: #### 2 031702 ####[facility] [address] [place] [address] Platelet mean volume (PMV) 9.8 fL Normal 6.4-10.8 [facility] Comment on above: Performed By: #### 2 280083 ####[facility] [address] [place] [address] Platelets 106.0 E9/L Low 150.0-500.0 [facility] Comment on above: Performed By: #### 2 146542 ####[facility] [address] [place] [address] WBC (Leukocytes) 10.1 E9/L Normal 4.0-11.0 [facility] Comment on above: Performed By: #### 2 710197 ####[facility] [address] [place] [address] Consultation Noteon 08-14-20 Consultation Note Visited Mom. She fee ls that is going well. She denies any concerns. She does state that her milk is coming in. I have offered my support should she need anything. khloe,CARBONIZER,CBS Normal [facility] Comment on above: Result Comment: Elec tronically Signed By: Salvatore CounselorJojo\.br\Date and Time Signed: 08/14/17 09:18 EST Discharge Instructions Given Worseningon 08-14-2017 Discharge Instructions Given Worsening The following Patient Education Materials have been given to the patient: EducationMaterial Normal [facility] Discharge Summaryon 08-14-20 Discharge Summary Patient: [...] of motion. Normal strength. Integumentary: Warm, Dry, [place]. Neurologic: Alert, Oriented. Psychiatric: Cooperative, Appropriate mood [...] OCPs 3 wks after delivery.Shwetha Celis MD [facility] Comment on above: Result Comment: Elec tronically Signed By: Shwetha Celis MD\.br\Date and Time Signed: 08/14/17 17:47 EST Inpatient Clinical Summaryon 08-14-2017 Inpatient Clinical Summary [place] [address] Clinical Summary Person Information Name: SHERI LOPEZ/[facility] Age: 31 Years : 1985 12:00 AM Sex: Female PCP: NONE, XXXX Marital Status: Race:White Ethnicity:Non- or Language:Azeri Visit Id: Visit Reason:INDUCTION/CONTRACTIO NS Speciality: Acuity: 1 PP Enc Type: Inpatient Med Service: Obstetrics Arrival:08/13/2017 6:51 AM Discharge: 08/14/2017 6:15 PM Dispo Type: Home (Routine DC) Address:[address] [place] [id number] Provider Notes: Patient: SHERI LOPEZ Age: 31 [...] of motion. Normal strength. Integumentary: Warm, Dry, [place]. Neurologic: Alert, Oriented. Psychiatric: Cooperative, Appropriate mood [...] Address: When: Shwetha Celis [address] [place] [address] Business (1) Within 6 weeks Comments: Call for any problems. Call for fever > 100.5 F Call for severe abdominal pain Call physician for heavy vaginal bleeding Nothing in the vagina for 6 weeks Call for 6 week appt. Patient Education Information: Normal [facility] Inpatient Patient Summaryon 08-14-2017 Inpatient Patient Summary [address] [address] Patient Discharge Instructions PERSON INFORMATION Name: SHERI LOPEZ Date of : 1985 12:00 AM Current Date: 08/14/17 18:23:11 PHYSICIANS Admitting Physician[facility] Care Physician: DARLENE, XXXXPCP Phone Number: Comment: [...] Address: When: Shwetha Celis [address] [place] [address] Business (1) Within 6 weeks [...] INFORMATIONInstructions:Med ication Leaflets: Thank you for choosing [facility] Normal [facility] ABO/Rhon 08-13-2017 ABO/Rh Positive Invalid Interpretation Code [facility] Comment on above: Performed By: #### 2 118925, [id number], [id number], [id number] ####[facility] [address] [place] [address] ABO/Rh History Checkon 08-13 ABO/Rh History Check Verified Hx Blood Type Normal [facility] Comment on above: Performed By: #### 2 925098, [id number], [id number], [id number] ####[facility] [address] [place] [address] ABSCon 08-13-2017 ABSC Gel Interp Negative Normal [facility] Comment on above: Performed By: #### 2 859739, [id number], [id number], [id number] ####[facility] [address] [place] [address] Blood Bank ID#on 08-13-2017 BBID# [id number] Invalid Interpretation Code [facility] Comment on above: Performed By: #### 2 428794, [id number], [id number], [id number] ####[facility] [address] [place] [address] CBC w/Indiceson 08-13-2017 Erythrocyte distribution width Auto Ratio (RBC) 14.3 % High 10.9-14.2 [facility] Comment on above: Performed By: #### 2 446486 ####[facility] [address] [place] [address] Erythrocytes (RBC) 4.2 E12/L Low 4.3-5.9 [facility] Comment on above: Performed By: #### 2 860125 ####[facility] [address] [place] [address] Hematocrit (HCT) 33.1 % Low 34.0-46.0 [facility] Comment on above: Performed By: #### 2 793752 ####[facility] [address] [place] [address] Hemoglobin mass conc (Bld) 11.0 g/dL Low 12.0-16.0 [facility] Comment on above: Performed By: #### 2 853846 ####[facility] [address] [place] [address] MCH 26.2 pg Low 27.0-34.0 [facility] Comment on above: Performed By: #### 2 817088 ####[address] [address] MCHC mass conc (RBC) 33.1 g/dL Normal 31.4-39.3 [facility] Comment on above: Performed By: #### 2 668464 ####[address] [address] MCV 79.3 fL Low 80.0-100.0 [facility] Comment on above: Performed By: #### 2 881818 ####[address] [address] Platelet mean volume (PMV) 9.5 fL Normal 6.4-10.8 [facility] Comment on above: Performed By: #### 2 417187 ####[address] [address] Platelets 109.0 E9/L Low 150.0-500.0 [facility] Comment on above: Performed By: #### 2 789352 ####[address] [address] WBC (Leukocytes) 9.9 E9/L Normal 4.0-11.0 [facility] Comment on above: Performed By: #### 2 181363 ####[address] [address] Consultation Noteon 08-13-20 Consultation Note Revisited Mom. Baby is skin to skin and is on the left breast. Mom is holding baby well and baby has a deep latch and is noted to be sucking and swallowing. Mom denies any pain. I have talked with her in regards to the baby being tongu tied. She will follow the advice of the source inspector.MONIQUE ledbetter,C BS [facility] Comment on above: Result Comment: William [...] tongue tied. Mom has been informed.MONIQUE ledbetter,HAO [facility] Comment on above: Result Comment: William [...] (05/12/2017)Confirmation: ConfirmedDescription: --Comments: --Entered by: José Antonio Blasting Entry SpecialistAlma on 05/12/2017 Other DORETHA Calculations for this [...] All ProblemsGroup B streptococcus / SNOMED CT 986661099 / ConfirmedPregnancy / SNOMED CT 644898734 / Confirmed Histories History History (1,0,1,2) # [...] weeks 3 days Wt: 2683 g Hospital: [facility] Familia Labor: 10 hr 17 min Child's Name: -- Baby's Father: -- Anesthesia Type: Epidural Complications: None Complications: nuchal cord times one, tight Family History: Entire family history is negative. Procedure history: tissue exercise rider & scar revision on back of head in 2007 at 21 Years. 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 Exercise Does not exercise (06/01/2012) Home/Environment Lives [...] (moderate amount, no meconium). Integumentary: Warm, Dry, [place]. Neurologic: Alert, Oriented. Psychiatric: Cooperative, Appropriate mood & affect. Impression and Plan 31 yo @ 40 2/7 wga, spontaneous labor, O+, GBS neg1. Admitted, consented2. Just received epidural3. AROM performed - clear fluid4. Expectant managementShwetha Celis MD [facility] Comment on above: Result Comment: [...] Problem list: All ProblemsPregnancy / SNOMED CT 526554460 / ConfirmedGroup B streptococcus / SNOMED CT 229521361 / ConfirmedResolved: Urinary tract infection / SNOMED CT 612594132Sgejqily: / SNOMED CT 392823939Tvibwczs: / SNOMED CT 043636537Cawkwsyg: / SNOMED CT 099426486 Histories Past Medical History: ResolvedPregnancy (413662044): Onset on 12/30/2014 at 29 years. Resolved on 09/12/2015 at 29 years.Urinary tract infection (275855321): Onset on 09/22/2011 at 25 years. Resolved. (351164377): Onset on 09/01/2011 at 25 years. Resolved on 06/01/2012 at 26 years. (130096353): Resolved in 2009 at 23 years. Family History: Entire family history is negative. Procedure history: tissue exercise rider & scar revision on back of head in 2007 at 21 Years. 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, [employer] tgtmdvcsaiZpnjhjwy19/01/201 2 Risk Assessment: Does not exerciseHome/Nfkbfonviup59/ 01/2012 Lives with: Significant other Alcohol abuse in household: No Substance abuse in household: No Smoker in household: No Injuries/Abuse/Neglect in household: No Safe place to go: Yes Family/Friends available to help: Yes Concern for family members at home: No Major illness in household: No Financial concerns: No Concerns over TV/Computer/Game use: NoNutrition/Jnyrfi03 2 Type of diet: LqovwdaSuxpnn66/01/2012 Sexually active: YesSubstance Abuse06/01/2012 Risk Assessment: Denies Substance TwfztUdrhyib86/01/2012 Risk Assessment: Denies Tobacco Use. Physical Examination [...] and perfusion.. Gastrointestinal: Benign, nontender.. Integumentary: Warm, [place]. Neurologic: No focal deficits, Cranial Nerves II-XII are grossly intact. Review / Management Results review Condition: Stable. Plan [place] Society of Anesthesiologists (ASA) physical status classification: Class II. Anesthetic Preoperative Plan Anesthesia: Regional Labor and delivery epidural utilizing EPCA. Anesthetic plan, risks, benefits, and alternatives discussed with the patient and/or family. Patient verbalized understanding. Discussed with pt the importance of abstaining from tobacco products, and offered counseling if pt desires. Informed consent was given. [facility] Comment on above: Result Comment: [...] INTRAVASCULAR OR INTRATHECAL INJECTION, THEN AN EPIDURAL GLASS BULB MACHINE ADJUSTER WAS INITIATED AND MAINTAINED AT 10 ML/HR. INFUSION TO BE DISCONTINUED AT THE AIR DUCT MECHANIC'S REQUEST.. Procedure tolerated: well. Complications: NO APPARENT COMPLICATIONS AT THE END OF THE PROCEDURE. 8S/ 3S Impression and Plan Normal [facility] Comment on above: Result Comment: Elec tronically Signed By: Anuj Clemens JR, DO\.br\Date and Time Signed: 08/13/17 08:21 EST U Drug Screenon 08-13-2017 AMPHETAMINES:PRTH R:PT:URINE:ORD:SC REEN>1000 NG/ML Negative Normal Negative [facility] Comment on above: Result Comment: Nega tive Cutoff: <1000 ng/mL Performed By: #### 2 587385 ####[facility] [address] [place] [address] OPIATES:PRTHR:PT: URINE:ORD:SCREEN Negative Normal Negative [facility] Comment on above: Result Comment: Nega tive Cutoff: <300 ng/mL Performed By: #### 2 600123 ####[facility] [address] [place] [address] PHENCYCLIDINE:PRT HR:PT:URINE:ORD:S CREEN>25 NG/ML Negative Normal Negative [facility] Comment on above: Result Comment: Nega tive Cutoff: <25 ng/mLThese drug screen results are to be used for medical (i.e., treatment) purposes only. Unconfirmed drug screening results must not be used for non-medical purposes (e.g., employment testing, legal testing). Performed By: #### 2 287366 ####[address] [address] TETRAHYDROCANNABI NOL:PRTHR:PT:URIN E:ORD:SCREEN>50 NG/ML Negative Normal Negative [facility] Comment on above: Result Comment: Nega tive Cutoff: <50 ng/mL Performed By: #### 2 296010 ####[address] [address] Urine, barbiturates presence Negative Normal Negative [facility] Comment on above: Result Comment: Nega tive Cutoff: <200 ng/mL Performed By: #### 2 405061 ####[address] [address] Urine, benzodiazepines presence Negative Normal Negative [facility] Comment on above: Result Comment: Nega tive Cutoff: <200 ng/mL Performed By: #### 2 972616 ####[address] [address] Urine, cocaine presence Negative Normal Negative [facility] Comment on above: Result Comment: Nega tive Cutoff: <300 ng/mL Performed By: #### 2 558555 ####[address] [address] Coding Summary.on 07-17-2017 Coding Summary. CODING DATE: 017 FINAL [facility] STATUS: Home (Routine DC) PAYOR: Commercial [...] Land Date Saved: 07/17/2017 06:17 pm Normal [facility] US Follow Upon Follow Up Exam [...] Signed by: Santino Garcia M.D. Transcribed by: ALYSE Technologist: BLMTechnical CommentsEDD 08/11/17EDD Obtained DORETHA by ELIANA [id number] History 4Para 2SAB 1Transabdominal Ultrasound PerformedFHR (bpm) 139Placenta Location anterior right lateralPlacenta Grade 2Fetal Positioning VertexAmniotic Fluid Volume SAURABH (cm) 21.44High NormalFetal Measurements BPD (cm) 9.24HC (cm) 33.63AC (cm) 33.88FL (cm) 6.93EFW (g) 3176EFW Size = Dates Normal [facility] Coding Summary.on 06-05-2017 Coding Summary. CODING DATE: 017 FINAL [facility] STATUS: Home (Routine DC) PAYOR: [...] Land Date Saved: 06/05/2017 06:03 pm Normal [facility] CBC w/Indiceson 06-04-2017 Erythrocyte distribution width Auto Ratio (RBC) 12.7 % Normal 10.9-14.2 [facility] Comment on above: Performed By: #### 2 863902 ####[facility] [address] [place] [address] Erythrocytes (RBC) 3.6 E12/L Low 4.3-5.9 [facility] Comment on above: Performed By: #### 2 192368 ####[facility] [address] [place] [address] Hematocrit (HCT) 30.6 % Low 34.0-46.0 [facility] Comment on above: Performed By: #### 2 467955 ####[facility] [address] [place] [address] Hemoglobin mass conc (Bld) 10.6 g/dL Low 12.0-16.0 [facility] Comment on above: Performed By: #### 2 160394 ####[facility] [address] [place] [address] MCH 29.5 pg Normal 27.0-34.0 [facility] Comment on above: Performed By: #### 2 203171 ####[facility] [address] [place] [address] MCHC mass conc (RBC) 34.4 g/dL Normal 31.4-39.3 [facility] Comment on above: Performed By: #### 2 133381 ####[facility] [address] [place] [address] MCV 85.7 fL Normal 80.0-100.0 [facility] Comment on above: Performed By: #### 2 194203 ####[facility] [address] [place] [address] Platelet mean volume (PMV) 9.5 fL Normal 6.4-10.8 [facility] Comment on above: Performed By: #### 2 311035 ####[facility] [address] [place] [address] Platelets 106.0 E9/L Low 150.0-500.0 [facility] Comment on above: Performed By: #### 2 829109 ####[facility] [address] [place] [address] WBC (Leukocytes) 8.0 E9/L Normal 4.0-11.0 [facility] Comment on above: Performed By: #### 2 792200 ####[place] [address] [place] [address] Coding Summary.on 05-26-2017 Coding Summary. CODING DATE: 017 [facility] STATUS: Home (Routine DC) PAYOR: Commercial Insurance [...] Land Date Saved: 05/26/2017 03:52 pm Normal [facility] Gest Scr Glu 1 Hron 05-23-20 17 Glucose mass conc 120 mg/dL Normal 55-140 [facility] Comment on above: Result Comment: Posi tive Screen =1 HR > 140mg/dL Performed By: #### 3 [id number] ####[place] [address] [place] [address] Progress Noteon 04-24-2017 Cardiac Monitor Technician Authentication Interface Message Text DOS: 04/24/2017ST. [facility] HOS[facility]ITALMATERNAL- MEDICINE CONSULTReferring/Requesting Provider: DYLLAN MoralesCP: GIUSEPPE [...] Heart Disease Paternal GrandfatherMEDS:Current Outpatient PrescriptionsMedication Sig Safrzrdt-Ams-Ql-FA ( VITAMINS PO) Take by mouth dailyALLERGY:No Known AllergiesREVIEW OF SYSTEMS:As mentioned above and in Subjective, all other Review of Systems reviewed andnegative.PHYSICAL EXAM:VITAL SIGNS: BP 110/66 Ht 162.6 cm Wt 70.8 kg (156 lb) BMI 26.78 kg/w5LGSQWQN:Estimated weight and amniotic fluid volume are appropriate [...] spent counseling and coordinating care.DO Radha Armenta [facility] Vital Signs Date Time Vital Sign Value Performing Clinician Facility 01-04-2022 11:30-0400 Body height 162.56 cm Minnie Medrano Other [facility] Other 01-04-2022 11:30-0400 Body mass index (BMI) [Ratio] 27.12 kg/m2 Minnie Medrano Other [facility] Other 01-04-2022 11:30-0400 Body temperature 97.9 [degF] Minnie Medrano Other [facility] Other 01-04-2022 11:30-0400 Body weight 71.67 kg Minnie Medrano Other [facility] Other 01-04-2022 11:30-0400 Diastolic blood pressure 71 mm[Hg] Minnie Medrano Other [facility] Other 01-04-2022 11:30-0400 Respiratory rate 16 /min Minnie Medrano Other [facility] Other 01-04-2022 11:30-0400 SaO2% (BldA) [Mass fraction] 98 % Minnie Medrano Other [facility] Other 01-04-2022 11:30-0400 Systolic blood pressure 110 mm[Hg] Minnie Medrano Other [facility] Other Encounters Encounter Date Encounter Type Care Provider Facility Start: 09-08-2023 End: 09-08-2023 ambulatory LEONELA CONROY Not Available Start: 07-22-2023 End: 07-22-2023 ambulatory ELADIO VERONICA Not Available Start: 07-16-2023 End: 07-16-2023 ambulatory LEONELA CONROY Not Available Start: 01-08-2022 End: 01-08-2022 ambulatory Minnie Medrano Other [facility] Other Start: 01-08-2022 Telephone encounter Minnie Medrano [facility] Start: 01-04-2022 End: 01-04-2022 ambulatory Minnie Medrano Other [employer] Other Start: 01-04-2022 Office outpatient vi sit 15 minutes Minnie Medrano [facility] Start: 08-13-2017 End: 08-14-2017 Evaluation and management of inpatient XXXX NONE Facility:[facility] Start: 07-16-2017 End: 07-17-2017 Ambulatory Carmen Rivera Facility:[facility] Start: 07-15-2017 End: 07-16-2017 Ambulatory Zainab Pascual Facility:[facility] Start: 06-04-2017 End: 06-05-2017 Ambulatory Carmen Rivera Facility:[facility] Start: 05-23-2017 End: 05-24-2017 Ambulatory Zainab Pascual Facility:[facility] Start: 04-24-2017 End: 04-24-2017 Ambulatory [facility] Start: 03-31-2017 End: 04-01-2017 Ambulatory Carmen Rivera Facility:[facility] Procedures Date Procedure Procedure Detail Performing Clinician Start: 01-04-2022 Piperacillin/tazobactam Minnie Medrano Other Payers Date Payer Category Payer [facility] [id number] 2017 Private Health Insurance [id number] 1985 Unknown [id number] 1987 Unknown [id number] 1987 Unknown [id number] Private Health Insurance [id number] Social History Date Type Detail Facility Unknown if ever smoked [employer] Other Sex Assigned At Sex Assigned At Bir th [facility] Other Evaluation note 01-04-2022 Note Date & [...] to only the absolute essential needed assessments. [employer] Other Evaluation note Note Date & Type Note Facility Evaluation note No Information [employer] Other Summary Purpose Family History No Family History Records FoundNo Family History Records FoundNo Family History Records FoundNo Family History Records Found Advance Directives No Advanced Directives Records FoundNo Advanced Directives Records FoundNo Advanced Directives Records FoundNo Advanced Directives Records Found Additional Source Comments INFORMATION SOURCE (unrecogn ized section and content) DATE CREATED AUTHOR 02/24/2018 [facility] DATE CREATED AUTHOR AUTHOR'S ORGANIZ ATION 02/25/2018 [facility] DATE CREATED AUTHOR AUTHOR'S ORGANIZ ATION 01/06/[address] [facility] DATE CREATED AUTHOR AUTHOR'S ORGANIZ ATION 09/09/2023 [facility] EPIC REASON FOR VISIT (unrecogniz [...] BE BASED ON THE PRIMARY CLINICAL RECORDS. [facility] provides no warranty or guarantee of the accuracy or completeness of information in this document.
[2023-09-19 06:54] LABS: Basophils Percent Auto 0.8 % (0.2-2.0); Eosinophils Absolute Auto 0.2 10^3/uL (0.0-0.7); Eosinophils Percent Auto 5.3 % (0.9-7.0); Hemoglobin 8.6 g/dL (12.0-16.0); Immature Granulocytes Abs Auto 0.01 10^3/uL (0.00-0.03); Immature Granulocytes Pct Auto 0.3 % (0.0-0.5); Lymphocytes Absolute Auto 1.3 10^3/uL (1.2-3.8); Lymphocytes Percent Auto 35.5 % (20.5-60.0); Mean Corpuscular HGB Conc 28.7 g/dL (29.9-35.2); Mean Corpuscular Hemoglobin 22.6 pg (26.7-34.0); Mean Corpuscular Volume 78.9 fL (81.0-99.0); Monocytes Absolute Auto 0.3 10^3/uL (0.3-0.8); Monocytes Percent Auto 7.8 % (1.7-12.0); Neutrophils Absolute Auto 1.8 10^3/uL (1.4-6.5); Neutrophils Percent Auto 50.3 % (43.0-75.0); Platelet Count 161 10^3/uL (150-450); Red Cell Distribution Width 15.7 % (11.0-15.0); White Blood Count 3.6 10^3/uL (4.0-11.0)
[2023-09-19 07:12] LABS: HCG Quantitative <1 mIU/mL
[2023-09-19] MEDS: LACTATED RINGER'S SOLUTION 1,000 ML 50 ML IV (07:25)
--- NOTE | 2023-09-19 08:46 | PM.ONB ---
Brief Operative Note Date of procedure: 09/19/23 Pre-op diagnosis: desires permanent sterilization, multiparity Post-op diagnosis: same as pre-op Procedure: Brief Operative Note Date of procedure: Pre-op diagnosis: Post-op diagnosis: Procedure: NAME OF PROCEDURE: robotic assisted bilateral laparoscopic salpingectomy PROCEDURE: The patient was taken back to the Operating Room where she was given general anesthesia without difficulty. She was then prepped and draped in the normal sterile fashion after being placed in a dorsal lithotomy position. A wet sponge stick was placed into the patient's vagina. Attention was then turned to the patient's abdomen, where a scalpel was used to make a small infraumbilical incision. The S retractors were then used to dissect the underlying layers until the fascia could be seen. The fascia was then grasped with Abebe clamps and tented up. A knife was then used to make a small incision to the fascia. The muscle was identified, at that time two sutures of #0 Vicryl on a GI needle was then used and placed through the fascia. the peritoneum was then identified and entered bluntly. The 10-4 Jocelyn was then placed into the patient's abdomen. This was confirmed with direct visualization of the bowel, using the laparoscope. The patient's abdomen was then insufflated using approximately 4 liters of CO2 gas. Survey of the patient's abdomen demonstrated ovaries were normal in appearance as well as both tubes and uterus. A second and third rt and lt lateral robotic ports which were 8 mm in size, was then placed after the skin incision was made under direct visualization . the robotic arms were engaged. The patient's tube on the patient's right side was identified and tented up using a grasper, the ligasure apparatus was then used to come across the mesosalpingx from the fimbriated end to the insertion site at the uterus, the tube was then amputated and removed in its entirety. This was done on the contralateral side. The tubes were the removed from the patients abdomen. Excellent hemostasis was noted. The lateral ports were then moved under direct visualization with excellent hemostasis. All instruments were removed from the patient's abdomen. The fascia was closed using the #0 Vicryl on GI needle. The skin was closed using 4-0 Vicryl subcuticularly. All instruments were removed from the patient's vagina as well. The patient was taken out of the dorsal lithotomy position and placed in the supine position and taken to recovery in stable condition. Sponge, lap and needle counts were correct x2. Anesthesia: MACEY Surgeon: Oneal Tipton Assistant Product Manager: Irena Aranda Estimated blood loss (mL): 5 Pathology: other (tubes) Condition: stable Disposition: PACU
[2023-09-19] MEDS: LACTATED RINGER'S SOLUTION 1,000 ML 150 ML IV (10:00)
[2023-09-19] MEDS: HYDROCODONE/ACET 5-325 MG TABLET 1 TAB PO (10:00)
--- NOTE | 2023-09-19 10:06 | PC.NURSE ---
Joyce pad dry; medicated for pain as ordered
--- NOTE | 2023-09-19 10:36 | PC.NURSE ---
Denies urge to void
--- NOTE | 2023-09-19 11:06 | PC.NURSE ---
Denies urge to void; peripad dry
--- NOTE | 2023-09-19 11:45 | PC.NURSE ---
Up to bathroom and voids clear yellow without difficulty; peripad dry
== END 2023-09-19 11:46 | disposition home or self-care (01) ==
PROVIDERS: PCP Family Medicine; Visit Provider Obstetrics & Gynecology
PROC: (CPT 840; principal; 2023-09-19 07:50)
DX: Z30.2 Encounter for sterilization (principal); D64.9 Anemia, unspecified; E66.9 Obesity, unspecified; Z68.27 Body mass index [BMI] 27.0-27.9, adult; D69.6 Thrombocytopenia, unspecified
CPT/HCPCS: 58661; 36415; 84702; 85025; 88302; J1100; J1885; J2001; J2250; J2405; J2704; J3010